=== PATIENT | female | born 1945 | race Caucasian/White ===

== ENCOUNTER 2018-02-01 05:57 | Day surgery (SDC) | payer MEDICARE, OTHER ==
[2018-02-01] MEDS ORDERED: DIPRIVAN 200 MG/20 ML IV ONE (05:58)
[2018-02-01] MEDS ORDERED: Lactated Ringers 1,000 ML IV SCH (06:00)
[2018-02-01 06:25] VITALS: O2SAT 98
--- NOTE | 2018-02-01 08:12 | OP ---
SURGERY DATE/TIME: 02/01/2018 0700 PREOPERATIVE DIAGNOSIS: Change in bowel habits. POSTOPERATIVE DIAGNOSIS: Normal colon. PROCEDURE: Diagnostic colonoscopy. SURGEON: Wilfredo Renner M.D. ANESTHESIA: MAC by Gregg Gonzales CRNA. ESTIMATED BLOOD LOSS: None. SPECIMENS: None. DESCRIPTION OF PROCEDURE: After informed written consent was obtained, the patient was taken to the endoscopy suite. She underwent monitored anesthesia and a digital rectal exam showed normal sphincter tone and no internal lesions. The scope was inserted into the rectum and sequentially the entire colonic mucosa was traversed. The level of cecum was reached and verified with direct visualization of ileocecal valve. Careful mucosal inspection upon withdrawal revealed no gross abnormalities. Prior to withdrawal retroflexion was performed and showed no internal lesions. The scope was removed and the patient was transferred to the recovery room in good condition.
[2018-02-01 09:09] VITALS: BP 120/61; PULSE 69
== END 2018-02-01 08:40 | disposition home or self-care (01) ==
LOC: SDC 05:57
PROVIDERS: ATTEND Family Medicine
DX: R19.4 Change in bowel habit (principal); I10 Essential (primary) hypertension; E03.9 Hypothyroidism, unspecified
CPT/HCPCS: 94250; 99100; J2704

== ENCOUNTER 2018-03-10 09:18 | Emergency (ER) | payer MEDICARE, OTHER ==
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
[2018-03-10 10:34] LABS: BASOPHIL % 0.1 % (0.0-0.4); Basophil (Absolute #) 0.02 (0-0.4); Eosinophil % 0.1 % (0.00-5.0); Eosinophil (Absolute #) 0.01 (0-0.5); Granulocytes % 86.5 % (36.0-66.0); Hemoglobin 13.1 gm/dl (12.0-16.0); Lymphocyte (Absolute #) 1.09 (1.0-4.6); Lymphocytes % 5.7 % (24.0-44.0); Mean Cell Volume 86.7 fl (78-100); Mean Corpuscular Hemoglobin 29.1 pg (26-32); Mean Corpuscular Hgb Concent. 33.6 g/dl (32-36); Mean Platelet Volume 9.1 fl (6-9.5); Monocyte (Absolute #) 1.46 (0.0-1.3); Monocytes % 7.6 % (0.0-12.0); Platelet Count 255 K/mm3 (150-450); Red Cell Distribution Width 14.2 % (11.5-14.0); White Blood Count 19.2 K/mm3 (4.0-10.5)
[2018-03-10 10:52] LABS: Appearance SLIGHTLY CLOUDY (CLEAR); Bacteria MODERATE /HPF (NEGATIVE); Bilirubin NEGATIVE (NEGATIVE); Blood NEGATIVE Ery/ul (0-5); Epithelial Cells RARE /HPF (FEW); Glucose NEGATIVE (NEGATIVE); Ketones NEGATIVE (NEGATIVE); Leukocyte Esterase MODERATE (NEGATIVE); Mucus SLIGHT /HPF (NEGATIVE); Nitrite POSITIVE (NEGATIVE); Protein,Urine Dip NEGATIVE (Negative); RBC 0-2 /HPF (0-2); Specific Gravity 1.017 (1.005-1.025); Urobilinogen NEGATIVE mg/dL (0-1); WBC 51-100 /HPF (0-5)
[2018-03-10 10:53] LABS: ALKALINE PHOSPHATASE 100 U/L (38-126); ANION GAP 10.8 MEQ/L (5-15); BLOOD UREA NITROGEN 27 mg/dL (7-17); CHLORIDE 102 mmol/L (98-107); Calcium 9.7 mg/dL (8.4-10.2); Carbon Dioxide 29 mmol/L (22-30); Creatinine 1 1.34 mg/dL (0.52-1.04); Glucose 135 mg/dL (74-106); NT PRO BNP 621 pg/mL (0-900); Potassium 3.6 mmol/L (3.5-5.1); SGOT/AST 21 U/L (14-36); SGPT/ALT 22 U/L (0-35); SODIUM 138 mmol/L (137-145); Total Protein 6.9 g/dL (6.3-8.2)
[2018-03-10 11:00] LABS: INR 1.12 (0.8-3.0)
[2018-03-10 11:01] LABS: ACETAMINOPHEN < 10 ug/ml (10-30); ETHYL ALCOHOL < 10 mg/dL (0-10); SALICYLATE < 1.0 mg/dL (2-20)
[2018-03-10 11:04] LABS: Amphetamine,Urine NEGATIVE (NEGATIVE); Barbiturate,Urine NEGATIVE (NEGATIVE); Benzodiazepine,Urine NEGATIVE (NEGATIVE); Cocaine,Urine NEGATIVE (NEGATIVE); Methadone,Urine NEGATIVE (NEGATIVE); Opiate,Urine NEGATIVE (NEGATIVE); PCP,Urine NEGATIVE (NEGATIVE); THC,Urine NEGATIVE (NEGATIVE)
--- NOTE | 2018-03-10 11:09 | XRAY ---
Indication: Cough. Disorientation. Comparison: January 07, 2017. PA/lateral chest demonstrates new bibasilar discoid atelectasis/scarring. No focal infiltrate, consolidation, or large effusion. Heart and mediastinal structures within normal limits. Bony thorax intact again with mild degenerative changes, right shoulder arthroplasty, and a right clavicle screw. Also right humeral shaft bone island unchanged since right shoulder exam 06/22/15. Impression: Nonacute chest with chronic features.
--- NOTE | 2018-03-10 11:16 | XRAY ---
Indication: Confusion. Disorientation. Multiple contiguous axial images obtained through the head without contrast. Comparison: January 07, 2017. Images through the base of the brain slightly degraded by motion artifact even with repeat CT. Again no acute intracranial hemorrhage, abnormal extra-axial fluid collection, or mass effect. Fourth ventricle is midline without hydrocephalus. Christensen-white matter differentiation preserved. Bony calvarium intact. Visualized paranasal sinuses and mastoid air cells are clear. Impression: 1. Motion artifact. 2. No gross new or acute intracranial abnormalities. CT DI 70.31
[2018-03-10 11:23] LABS: INFLUENZA A NEGATIVE (NEGATIVE); INFLUENZA B NEGATIVE (NEGATIVE); RESPIRATORY SYNCTIAL VIRUS NEGATIVE (Negative)
[2018-03-10] MEDS ORDERED: Levofloxacin 500MG/100ML D5W 500 MG/100 ML BAG IV ONE (11:54)
[2018-03-10] MEDS: Levofloxacin 500MG/100ML D5W 500 MG/100 ML BAG IV STA (11:55)
[2018-03-10 12:01] VITALS: BP 118/70; PULSE 78; O2SAT 96
== END 2018-03-10 13:02 | disposition home or self-care (01) ==
LOC: ED 09:18
DX: N39.0 Urinary tract infection, site not specified (principal); Z85.3 Personal history of malignant neoplasm of breast; E03.9 Hypothyroidism, unspecified; I10 Essential (primary) hypertension; R41.0 Disorientation, unspecified; M79.10 Myalgia, unspecified site; I25.10 Atherosclerotic heart disease of native coronary artery without angina pectoris; M19.90 Unspecified osteoarthritis, unspecified site; N28.9 Disorder of kidney and ureter, unspecified; F32.9 Major depressive disorder, single episode, unspecified; Z79.899 Other long term (current) drug therapy
CPT/HCPCS: 36000; 36415; 70450; 71046; 80053; 80307; 81001; 83605; 83880; 84484; 85025; 85610; 87040; 87077; 87086; 87186; 87631; 93005; 93041; 96365; 96374; 99284; G0480; G0481; J1956

== ENCOUNTER 2019-10-04 07:16 | Emergency (ER) | payer MEDICARE, OTHER ==
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
[2019-10-04 08:32] VITALS: BP 113/56; PULSE 65
[2019-10-04 08:35] LABS: Appearance CLEAR (CLEAR); Bilirubin NEGATIVE (NEGATIVE); Blood NEGATIVE Ery/ul (0-5); Glucose NEGATIVE (NEGATIVE); Ketones NEGATIVE (NEGATIVE); Leukocyte Esterase NEGATIVE (NEGATIVE); Mucus SLIGHT /HPF (NEGATIVE); Nitrite NEGATIVE (NEGATIVE); Protein,Urine Dip NEGATIVE (Negative); Specific Gravity 1.012 (1.005-1.025); Urobilinogen NEGATIVE mg/dL (0-1)
--- NOTE | 2019-10-04 08:45 | XRAY ---
Indication: Abdomen pressure. Unable to urinate. Multiple contiguous axial images obtained through the abdomen and pelvis without contrast using renal stone protocol. Comparison: None Lung bases demonstrates minimal right posterior medial calcified pleural plaquing and minimal lingula fibrosis/scarring. No infiltrate or effusion. Heart is not enlarged. Small hiatal hernia. Noncontrasted stomach and bowel loops appear nonobstructed. Normal appendix. Minimal sigmoid diverticulosis. No renal calculus or evidence for obstructive uropathy in either system. Right kidney is atrophic. Left mid to lower kidney demonstrates a noncalcified 8.6 cm exophytic cyst. 2.9 cm left ovary cyst. Daily catheter drains the urinary bladder. No free fluid/air. There is a 2.2 cm gallstone. Remaining liver, pancreas, spleen, adrenal glands, kidneys, ureters, bladder, and uterus appear unremarkable for noncontrast exam. Moderate scattered aortoiliac calcifications without AAA. Osseous structures intact with mild/moderate degenerative spondylosis throughout the thoracolumbar spine including 5-6 mm L4 spondylolisthesis. Impression: 1. Negative renal calculus or evidence for obstructive uropathy. 2. Atrophic right kidney, large left renal exophytic cyst, and Daily catheter in situ. 3. Incidental small hiatal hernia, right lung base calcified pleural plaquing, large gallstone, minimal sigmoid diverticulosis, left ovary cyst, multilevel degenerative spondylosis, and grade 1 L4 spondylolisthesis.
[2019-10-04 08:57] VITALS: O2SAT 98
== END 2019-10-04 09:24 | disposition home or self-care (01) ==
LOC: ED 07:16
DX: R33.9 Retention of urine, unspecified (principal); K57.30 Diverticulosis of large intestine without perforation or abscess without bleeding; N28.1 Cyst of kidney, acquired; N83.209 Unspecified ovarian cyst, unspecified side; K80.80 Other cholelithiasis without obstruction; M43.10 Spondylolisthesis, site unspecified; M47.816 Spondylosis without myelopathy or radiculopathy, lumbar region; Z79.899 Other long term (current) drug therapy; I25.10 Atherosclerotic heart disease of native coronary artery without angina pectoris; F32.9 Major depressive disorder, single episode, unspecified; Z85.3 Personal history of malignant neoplasm of breast; N18.3 Chronic kidney disease, stage 3 (moderate)
CPT/HCPCS: 51702; 74176; 81001; 99284

== ENCOUNTER 2020-09-12 13:27 | Emergency (ER) | payer MEDICARE, OTHER ==
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
[2020-09-12 14:19] LABS: Appearance SLIGHTLY CLOUDY (CLEAR); Bilirubin NEGATIVE (NEGATIVE); Blood NEGATIVE Ery/ul (0-5); Epithelial Cells RARE /HPF (FEW); Glucose NEGATIVE (NEGATIVE); Ketones NEGATIVE (NEGATIVE); Leukocyte Esterase TRACE (NEGATIVE); Mucus SLIGHT /HPF (NEGATIVE); Nitrite NEGATIVE (NEGATIVE); Protein,Urine Dip NEGATIVE (Negative); Specific Gravity 1.017 (1.005-1.025); Urobilinogen NEGATIVE mg/dL (0-1); WBC 0-2 /HPF (0-5)
[2020-09-12 14:50] VITALS: BP 132/67; PULSE 55; O2SAT 99
[2020-09-12] MEDS ORDERED: KEFLEX 500 MG PO ONE (14:50)
== END 2020-09-12 15:02 | disposition home or self-care (01) ==
LOC: ED 13:27
DX: R42 Dizziness and giddiness (principal); R41.0 Disorientation, unspecified; N39.0 Urinary tract infection, site not specified; Z79.899 Other long term (current) drug therapy; E03.9 Hypothyroidism, unspecified
CPT/HCPCS: 81001; 99283

== ENCOUNTER 2020-09-13 14:53 | Emergency (ER) | payer MEDICARE, OTHER ==
[2020-09-13 15:47] LABS: Absolute Neutrophil Ct (ANC) 4.12 (1.4-6.9); BASOPHIL % 0.4 % (0.0-0.4); Basophil (Absolute #) 0.03 (0-0.4); Eosinophil % 3.9 % (0.00-5.0); Eosinophil (Absolute #) 0.28 (0-0.5); Lymphocyte (Absolute #) 2.06 (1.0-4.6); Lymphocytes % 28.7 % (24.0-44.0); Mean Cell Volume 87.8 fl (78-100); Mean Corpuscular Hemoglobin 28.6 pg (26-32); Mean Corpuscular Hgb Concent. 32.6 g/dl (32-36); Mean Platelet Volume 9.8 fl (7.5-11.0); Monocyte (Absolute #) 0.69 (0.0-1.3); Monocytes % 9.6 % (0.0-12.0); Neutrophil % 57.4 % (36.0-66.0); Platelet Count 233 K/mm3 (150-450); Red Cell Distribution Width 13.5 % (11.5-14.0); White Blood Count 7.2 K/mm3 (4.0-10.5)
[2020-09-13 15:54] LABS: ALBUMIN 4.2 g/dL (3.5-5.0); ANION GAP 13.7 MEQ/L (5-15); BILIRUBIN,TOTAL 0.3 mg/dL (0.2-1.3); Calcium 9.3 mg/dL (8.4-10.2); Creatinine 1 1.14 mg/dL (0.52-1.04); EST GLOMERULAR FILTRATION RATE 49.5 ML/MIN; Potassium 4.1 mmol/L (3.5-5.1)
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
[2020-09-13 17:01] VITALS: BP 123/70
[2020-09-13 17:05] VITALS: PULSE 64
[2020-09-13 17:09] LABS: Appearance SLIGHTLY CLOUDY (CLEAR); Bilirubin NEGATIVE (NEGATIVE); Blood NEGATIVE Ery/ul (0-5); Glucose NEGATIVE (NEGATIVE); Ketones NEGATIVE (NEGATIVE); Leukocyte Esterase NEGATIVE (NEGATIVE); Mucus SLIGHT /HPF (NEGATIVE); Nitrite NEGATIVE (NEGATIVE); Protein,Urine Dip NEGATIVE (Negative); Specific Gravity 1.014 (1.005-1.025); Urobilinogen NEGATIVE mg/dL (0-1)
[2020-09-13 17:14] LABS: Bacteria NONE SEEN /HPF (NEGATIVE); RBC NONE SEEN /HPF (0-2)
[2020-09-13 17:38] VITALS: O2SAT 98
--- NOTE | 2020-09-13 20:20 | XRAY ---
Indication: Dizziness. Comparison: March 10, 2018. Portable chest clear. Heart and mediastinal structures within normal limits. Bony thorax intact again with mild osteopenia, degenerative changes, right shoulder arthroplasty, right clavicle screw, and benign right humerus sclerotic lesion. Impression: Nonacute chest with chronic features.
--- NOTE | 2020-09-13 20:24 | XRAY ---
Indication: Pain following fall. Comparison: None 2 view right hip demonstrates mild osteopenia, pelvic phleboliths, and pelvic suture material/surgical clips. No other bony, articular, or soft tissue abnormalities.
--- NOTE | 2020-09-13 20:24 | XRAY ---
Indication: Dizziness. Fall. Multiple contiguous axial images obtained through the head without contrast. Comparison: March 10, 2018. There is again age-appropriate global atrophy and calcified right middle cerebral artery. No acute intracranial hemorrhage, abnormal extra-axial fluid collection, or mass effect. Christensen-white matter differentiation preserved. Fourth ventricle is midline without hydrocephalus. Bony calvarium intact. Visualized paranasal sinuses and mastoid air cells are clear. Impression: Again age-appropriate atrophy and calcified right middle cerebral artery. No new or acute intracranial abnormalities. Comment: Preliminary interpretation was made by [facility]. No critical discrepancy.
== END 2020-09-13 17:53 | disposition home or self-care (01) ==
LOC: ED 14:53
DX: R42 Dizziness and giddiness (principal); E79.0 Hyperuricemia without signs of inflammatory arthritis and tophaceous disease; F07.81 Postconcussional syndrome; R51.9 Headache, unspecified; M25.551 Pain in right hip; N18.30 Chronic kidney disease, stage 3 unspecified; E03.9 Hypothyroidism, unspecified; Z79.899 Other long term (current) drug therapy
CPT/HCPCS: 36000; 36415; 70450; 71045; 73502; 80053; 81001; 82150; 83605; 83690; 84484; 84550; 85025; 93005; 99284

== ENCOUNTER 2021-07-16 10:24 | Day surgery (SDC) | payer MEDICARE, OTHER ==
--- NOTE | 2021-07-10 11:54 | HP ---
DATE OF SURGERY: 07/16/2021 HISTORY OF PRESENT ILLNESS: The patient presented with cholelithiasis. She had ultrasound showing gallstones. The patient has complaints of some abdominal pain. The patient desires removal at this time. PAST MEDICAL HISTORY: Hyperlipidemia, hypertension, thyroid, coronary artery disease, chronic kidney disease, arthritis, sleep apnea, possible stroke. PAST SURGICAL HISTORY: Hysterectomy. Bladder tie up. Right shoulder. Left knee. Carpal tunnel both hands. ALLERGIES: STATINS. CEPHALEXIN. OXYBUTYNIN. TAMSULOSIN. MEDICATIONS: Allopurinol, amlodipine, Zetia, isosorbide, liothyronine, metoprolol, Nitro, propranolol, rosuvastatin. FAMILY HISTORY: Cancer, diabetes, heart, stroke. SOCIAL HISTORY: Negative. REVIEW OF SYSTEMS: CONSTITUTIONAL: Denies fever or chills. CHEST: Denies shortness of breath. CVS: Denies chest pain. ABDOMEN: She reports abdominal pain. PHYSICAL EXAMINATION: GENERAL: No acute distress. CHEST: Nonlabored. No shortness of breath. CVS: Regular rate and rhythm. ABDOMEN: Soft. IMPRESSION: Symptomatic cholelithiasis. PLAN: Laparoscopic cholecystectomy with Dr. Niall Montgomery. As dictated by Kimberly John NP.
[~2021-07-16 10:24] MED LIST: Lactated Ringers 1,000 ML IV ONE; Sensorcaine 0.25% 10 ML ONE
[2021-07-16] MEDS ORDERED: DIPRIVAN 200 MG/20 ML IV ONE (10:25)
[2021-07-16] MEDS ORDERED: Lactated Ringers 1,000 ML IV ONE ×2 (10:48→14:42)
[2021-07-16] MEDS ORDERED: Reglan 10 MG/2 ML IV ONE (11:24)
[2021-07-16] MEDS ORDERED: Pepcid 20 MG VIAL IV ONE (11:24)
[2021-07-16] MEDS ORDERED: Lactated Ringers 1,000 ML IV SCH (11:30)
[2021-07-16] MEDS ORDERED: Levofloxacin 500MG/100ML D5W 500 MG/100 ML BAG IV ONE (11:33)
[2021-07-16] MEDS ORDERED: CLINDAMYCIN-D5W 900 MG/50 ML*** 900 MG/50 ML BAG IV SCH (12:00)
[2021-07-16] MEDS ORDERED: Zemuron 100 MG/10 ML ONE (12:21)
[2021-07-16] MEDS ORDERED: Versed 2 MG/2 ML Injection ONE (12:21)
[2021-07-16] MEDS ORDERED: SUBLIMAZE 100 MCG/2 ML ONE ×3 (12:21→14:29)
[2021-07-16] MEDS ORDERED: BRIDION 200MG/2ML IV ONE (13:51)
[2021-07-16] MEDS ORDERED: Zofran 4 MG/2 ML VIAL ONE ×2 (13:52→14:43)
[2021-07-16] MEDS ORDERED: MORPHINE SULFATE 10 MG/ML ONE (14:42)
[2021-07-16] MEDS ORDERED: NORCO 5/325 MG PO PRN (16:01)
[2021-07-16 17:02] VITALS: BP 166/93; PULSE 70; O2SAT 95
--- NOTE | 2021-07-17 13:15 | OP ---
SURGERY DATE: 07/16/2021 SURGERY TIME: 130 PREOPERATIVE DIAGNOSIS: 1. SYMPTOMATIC CHOLELITHIASIS. POSTOPERATIVE DIAGNOSIS: 1. SYMPTOMATIC CHOLELITHIASIS. PROCEDURE: 1. Laparoscopic cholecystectomy. SURGEON: Niall Montgomery M.D. ANESTHESIA: General endotracheal tube. COMPLICATIONS: None. CONDITION: Stable. INDICATION: Patient with upper abdominal pain. US positive. Seen and examined. Procedure discussed. Wished to proceed. OPERATIVE PROCEDURE: Taken to surgery. General anesthetic. Routine prep and drape. Veress needle inserted. Opened to a pressure of 1. Insufflated to a pressure of 14. Four 5's were used. Good visualization. Cystic duct defined. Cystic artery defined. Both structures triply Ligaclipped and transected. Clips totally cross wall approximated. Gallbladder rolled out of gallbladder fossa. Gallbladder delivered through the epigastric port. Hole closure device was used here. The field was dry. CO2 exsufflated. Skin closed with 4-0 Vicryl and Steri-strips. Patient tolerated the procedure satisfactory.
== END 2021-07-16 16:45 | disposition home or self-care (01) ==
LOC: SDC 10:24
PROVIDERS: ATTEND Surgery
DX: K80.20 Calculus of gallbladder without cholecystitis without obstruction (principal)
CPT/HCPCS: 99100; J1956; J2250; J2270; J2405; J2704; J3010; A9270-GY

== ENCOUNTER 2022-06-04 20:57 | Emergency (ER) | payer MEDICARE, OTHER ==
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
[2022-06-04] MEDS ORDERED: Sodium Chloride 0.9% 1000 ML 1,000 ML IV STA (21:27)
[2022-06-04] MEDS ORDERED: Sodium Chloride 0.9% 1000 ML 1,000 ML ONE (21:32)
[2022-06-04 21:46] LABS: Absolute Neutrophil Ct (ANC) 5.53 x10^3/uL (1.4-6.9); BASOPHIL % 0.6 % (0.0-0.4); Basophil (Absolute #) 0.05 x10^3/uL (0-0.4); Eosinophil % 1.7 % (0.00-5.0); Eosinophil (Absolute #) 0.14 x10^3/uL (0-0.5); Hematocrit 39.1 % (35-47); Hemoglobin 12.6 g/dL (12.0-16.0); IMMATURE GRAN # 0.03 x10^3u/L (0.00-0.03); IMMATURE GRAN % 0.4 % (0.00-0.4); Mean Cell Volume 90.1 fL (78-100); Mean Corpuscular Hgb Concent. 32.2 g/dL (32-36); Mean Platelet Volume 9.8 fL (7.5-11.0); Monocyte (Absolute #) 0.51 x10^3/uL (0.0-1.3); Neutrophil % 65.3 % (36.0-66.0); Platelet Count 326 x10^3/uL (150-450); Red Blood Count 4.34 x10^6/uL (4.1-5.4); Red Cell Distribution Width 13.2 % (11.5-14.0); White Blood Count 8.5 x10^3/uL (4.0-10.5)
[2022-06-04 21:56] LABS: Appearance Clear (Clear); Bacteria None Seen /HPF (None Seen); Bilirubin Negative (Negative); Blood Negative (Negative); Epithelial Cells None Seen /HPF (None Seen); Glucose, Urine Negative (Negative); Hyaline Casts NONE SEEN /LPF (0-2); Ketones Negative (Negative); Leukocyte Esterase Negative (Negative); Nitrite Negative (Negative); Ph 5.5 (4.6-8.0); Protein,Urine Dip Negative (Negative); RBC 0-2 /HPF (0-5); Specific Gravity 1.015 (1.005-1.030); Urobilinogen 0.2 mg/dL (0.2); WBC 0-2 /HPF (0-5)
[2022-06-04 21:59] LABS: ADD URINE CULTURE? NO (NO)
[2022-06-04 22:03] LABS: ALBUMIN 4.3 g/dL (3.5-5.0); BILIRUBIN,TOTAL 0.5 mg/dL (0.2-1.3); Calcium 9.7 mg/dL (8.4-10.2); Creatinine 1 1.23 mg/dL (0.52-1.04); EST GLOMERULAR FILTRATION RATE 45.1 ML/MIN; Potassium 3.9 mmol/L (3.5-5.1); Total Protein 7.1 g/dL (6.3-8.2)
--- NOTE | 2022-06-04 22:11 | XRAY ---
Indication: Confusion 3 weeks. Multiple contiguous axial images obtained through the head without contrast. Comparison: September 13, 2020 Again age-appropriate global atrophy and calcified right middle cerebral artery. No acute intracranial hemorrhage, abnormal extra-axial fluid collection, or mass effect. Fourth ventricle is midline without hydrocephalus. Christensen-white matter differentiation preserved. Bony calvarium intact. Visualized paranasal sinuses and mastoid air cells are clear. Impression: Again atrophy and calcified right middle cerebral artery. No new or acute intracranial abnormalities.
[2022-06-04 22:21] VITALS: O2SAT 98
[2022-06-04 22:44] LABS: INFLUENZA A NEGATIVE (NEGATIVE); INFLUENZA B NEGATIVE (NEGATIVE); RESPIRATORY SYNCTIAL VIRUS NEGATIVE (NEGATIVE); SARS-CoV-2 Xpert Express NEGATIVE (NEGATIVE)
[2022-06-04 23:08] VITALS: BP 144/61; PULSE 80
== END 2022-06-04 23:12 | disposition home or self-care (01) ==
LOC: ED 20:57
DX: F45.9 Somatoform disorder, unspecified (principal); R53.1 Weakness; R41.0 Disorientation, unspecified; I10 Essential (primary) hypertension; Z79.899 Other long term (current) drug therapy; Z20.828 Contact with and (suspected) exposure to other viral communicable diseases
CPT/HCPCS: 0241U; 36000; 36415; 70450; 80053; 81001; 84436; 84443; 84484; 85025; 86308; 93005; 99284

== ENCOUNTER 2023-05-29 16:57 | Observation (INO) | payer MEDICARE, OTHER ==
--- NOTE | 2023-05-29 18:54 | ERPHSYRPT ---
<GILJAIRO KIM - Last Filed: 05/29/23 21:18> - History of Present Illness Source: patient Exam Limitations: no limitations Patient Subjective Stated Complaint: C/O Fatigue and "losing time" Triage Nursing Assessment: Patient ambulated back to ER without difficulties. She is alert and oriented; talkative. SRIVASTAVA WNL. No SOB. No cough. Skin tone is normal. Hx Tetanus, Diphtheria Vaccination/Date Given: Yes Hx Influenza Vaccination/Date Given: Yes Hx Pneumococcal Vaccination/Date Given: Yes Immunizations Up to Date: Yes <SONY CAMEJO - Last Filed: 06/02/23 23:16> - History of Present Illness Time Seen by Provider: 05/29/23 17:00 Physician History: 78-year-old female with history of hypertension, hyperlipidemia presented in the ER with complains of intermittent confusion episodes for the last 2 weeks. Patient reports she is forgetting common things like getting on highway and sometimes also having hard time word forming. Also reports having issues with balance lately. Reports having similar symptoms in the past after she had a concussion but improved with Aricept. Denies any fall or trauma. No fever or chills reported. Denies any chest pain palpitations or shortness of breath. Denies any focal numbness tingling or weakness. Reports feeling fatigued and worn out all the time. (SONY CAMEJO) Allergies/Adverse Reactions: Cpjofxn-YRR-KoM Reductase Inhibitor [Grgbrmb-Ijr-Oba Reductase Inhibitor] Allergy (Intermediate, Verified 05/29/23 18:07) hip and leg pain "couldn't move or do anything" cephalexin Adverse Reaction (Mild, Verified 05/29/23 18:07) Nausea oxybutynin Adverse Reaction (Mild, Verified 05/29/23 18:07) urinary retention tamsulosin Adverse Reaction (Mild, Verified 05/29/23 18:07) urinary retention Home Medications: Aspirin 81 mg PO DAILY 09/20/17 [History] Multivitamin W-Minerals/Lutein [Centrum Silver Tablet] 1 each PO DAILY 09/20/17 [History] Amlodipine Besylate 5 mg PO DAILY 10/04/19 [History] Ezetimibe 10 mg PO HS 10/04/19 [History] Isosorbide Mononitrate 30 mg [Imdur 30 MG] 30 mg PO DAILY 10/04/19 [History] Rosuvastatin Calcium 20 mg PO HS 10/04/19 [History] Nitroglycerin 0.4 mg Tablet [Nitrostat 0.4 MG Tablet] 0.4 mg SL UD 06/11/20 [History] Acetaminophen 500 mg [Tylenol Extra Strength 500 mg] 500 mg PO DAILY PRN PRN 07/14/21 [History] Allopurinol 100 mg [Zyloprim 100 mg] 100 mg PO BID 07/14/21 [History] Docusate Sodium [Stool Softener] 100 mg PO HS 07/14/21 [History] Cranberry Fruit Extract/Vit C [Azo Cranberry Softgel] 2 each PO DAILY 05/30/23 [History] Donepezil HCl 10 mg PO DAILY 05/30/23 [History] Gluc/Chnd/Om3/Dha/Epa/Fish/Str [Glucosamine-Chondr Plus Sftgel] 2 each PO DAILY 05/30/23 [History] Liothyronine Sodium 2 tab PO DAILY 05/30/23 [History] Mv-Min/FA/Vit K/Lutein/Zeaxant [Preservision Areds 2 Plus Mv] 1 each PO BID 05/30/23 [History] Travel Risk - International Travel Have you traveled outside of the country in past 3 weeks: No - Emerging Infectious Disease Are you exhibiting symptoms associated with any current EIDs: No <SONY CAMEJO - Last Filed: 06/02/23 23:16> - Review of Systems Constitutional: Fatigue Eyes: No Symptoms Ears, Nose, & Throat: No Symptoms Respiratory: No Symptoms Cardiac: No Symptoms Abdominal/Gastrointestinal: No Symptoms Genitourinary Symptoms: No Symptoms Musculoskeletal: Arthralgias Skin: No Symptoms Neurological: Gait Changes Endocrine: No Symptoms Hematologic/Lymphatic: No Symptoms Immunological/Allergic: No Symptoms <SONY CAMEJO - Last Filed: 06/02/23 23:16> - Past Medical History Pertinent Past Medical History: Yes Neurological History: Stroke ENT History: Cataracts Cardiac History: Coronary Artery Disease, High Cholesterol, Hypertension Respiratory History: Sleep Apnea Endocrine Medical History: Hypothyroidism, Other Musculoskeletal History: Degenerative Disk Disease, Osteoarthritis GI Medical History: No Pertinent History History: Renal Disease, Other Psycho-Social History: Depression Female Reproductive Disorders: Breast Cancer Other Medical History: STAGE 3 CKD, CPAP FOR SLEEP APNEA, RIGHT TKR - Past Surgical History Past Surgical History: Yes Neuro Surgical History: No Pertinent History Cardiac: No Pertinent History Respiratory: No Pertinent History Gastrointestinal: No Pertinent History Genitourinary: No Pertinent History Musculoskeletal: Orthopedic Surgery Female Surgical History: Hysterectomy, Other Other Surgical History: cataract x2, right shoulder replacement and left index finger arthritis fusion. left steriotactic breast bx, carpal tunnel reyes , bladder tie up right knee replacement - Social History Smoking Status: Never smoker How long have you smoked: 2 Exposure to second hand smoke: No Drug Use: none Patient Lives Alone: Yes <SONY CAMEJO - Last Filed: 06/02/23 23:16> - Physical Exam General Appearance: no apparent distress, alert Eye Exam: PERRL/EOMI Ears, Nose, Throat Exam: normal ENT inspection Neck Exam: normal inspection, non-tender, supple, full range of motion Respiratory Exam: normal breath sounds, lungs clear Cardiovascular Exam: regular rate/rhythm, normal heart sounds Gastrointestinal/Abdomen Exam: soft, normal bowel sounds, No tenderness Back Exam: normal inspection, normal range of motion Extremity Exam: normal inspection, normal range of motion Neurologic Exam: alert, oriented x 3, cooperative, 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, nml cerebellar function, nml station & gait, sensation nml, No normal mood/affect, No motor deficits Skin Exam: normal color SpO2 Interpretation: normal SpO2: 99 O2 Delivery: Room Air <SONY CAMEJO - Last Filed: 06/02/23 23:16> - Nursing Vital Signs Nursing Vital Signs: Initial Vital Signs Temperature 97.4 F 05/29/23 17:56 Pulse Rate 63 05/29/23 17:56 Respiratory Rate 14 05/29/23 17:56 Blood Pressure 129/77 05/29/23 17:56 O2 Sat by Pulse Oximetry 99 05/29/23 17:56 Pain Scale Pain Intensity 0 Ordered Tests: Medication Summary Discontinued Medications Generic Name Dose Route Start Last Admin Trade Name Freq PRN Reason Stop Dose Admin Acetaminophen 325 mg 05/29/23 23:18 Acetaminophen 325 Mg Tablet PO 06/28/23 23:17 Q4H PRN PRN PAIN, FEVER, HEADACHE Acetaminophen 500 mg 05/30/23 08:14 Acetaminophen 500 Mg Tablet PO 06/29/23 08:13 DAILY PRN PRN PAIN Allopurinol 100 mg 05/30/23 10:00 05/30/23 11:37 Allopurinol 100 Mg Tablet PO 06/29/23 09:59 100 mg DAILY REKHA Administration Amlodipine Besylate 5 mg 05/30/23 10:00 05/30/23 11:37 Amlodipine Besylate 5 Mg Tablet PO 06/29/23 09:59 5 mg QAM REKHA Administration Aspirin 81 mg 05/30/23 10:00 05/30/23 11:37 Aspirin 81 Mg Tablet.Ec PO 06/29/23 09:59 81 mg DAILY REKHA Administration Docusate Sodium 100 mg 05/30/23 22:00 Docusate Sodium 100 Mg Capsule PO 06/29/23 21:59 HS [facility] Donepezil HCl 10 mg 05/30/23 10:00 05/30/23 11:37 Donepezil Hcl 10 Mg Tablet PO 06/29/23 09:59 10 mg DAILY REKHA Administration Ezetimibe 10 mg 05/30/23 22:00 Ezetimibe 10 Mg Tab PO 06/29/23 21:59 HS [facility] Enoxaparin Sodium 40 mg 05/30/23 10:00 05/30/23 11:37 Enoxaparin Sodium 40 Mg/0.4 Ml Syringe SQ 06/29/23 09:59 40 mg DAILY REKHA Administration Ceftriaxone Sodium 1 gm in 100 mls @ 200 mls/hr 05/29/23 20:00 05/29/23 20:11 Rocephin 1 Gm / 100 Ml Nacl IV 05/29/23 20:29 200 ml/hr STAT ONE 200 mls/hr Administration Ceftriaxone Sodium Confirm 05/29/23 20:05 Rocephin 1 Gm / 100 Ml Nacl Administered 05/29/23 20:06 Dose 1 gm in 100 mls @ ud IV .STK-MED ONE Sodium Chloride 1,000 mls @ 50 mls/hr 05/29/23 23:30 05/30/23 00:57 Sodium Chloride 0.9% 1000 Ml IV 06/28/23 23:29 50 mls/hr .Q20H REKHA Administration Ceftriaxone Sodium 1 gm in 100 mls @ 200 mls/hr 05/29/23 23:30 05/30/23 01:35 Rocephin 1 Gm / 100 Ml Nacl IV 06/28/23 23:29 Not Given Q24H REKHA Ceftriaxone Sodium 1 gm in 100 mls @ 200 mls/hr 05/30/23 22:00 Rocephin 1 Gm / 100 Ml Nacl IV 06/28/23 23:29 QPM REKHA Ceftriaxone Sodium Confirm 05/30/23 01:29 Rocephin 1 Gm / 100 Ml Nacl Administered 05/30/23 01:30 Dose 1 gm in 100 mls @ ud IV .STK-MED ONE Isosorbide Mononitrate 30 mg 05/30/23 10:00 05/30/23 10:57 Isosorbide Mononitrate 30 Mg Tab PO 06/29/23 09:59 Not Given DAILY REKHA Metoprolol Tartrate 25 mg 05/30/23 10:00 05/30/23 11:22 Metoprolol Tartrate 25 Mg Tab PO 06/29/23 09:59 Not Given BID REKHA Miscellaneous Information 1 each 05/30/23 09:00 Medication Intervention 1 Each Each 06/29/23 08:59 .RN TO CHECK REKHA Miscellaneous Information 1 each 05/30/23 11:45 Medication Intervention 1 Each Each MC 06/29/23 11:44 .RN TO CHECK REKHA Multivitamins Therapeutic 1 tab 05/30/23 10:00 05/30/23 11:37 Multivitamins,Therapeutic 1 Tab Tab PO 06/29/23 09:59 1 tab DAILY REKHA Administration Multivitamins/Minerals 1 tab 05/30/23 10:00 05/30/23 10:57 Beta-Carotene(A) W-C And E/Min 1 Tab Tablet PO 06/29/23 09:59 Not Given BID REKHA Simvastatin 40 mg 05/30/23 22:00 Simvastatin 20 Mg Tablet PO 06/29/23 21:59 HS [facility] Lab/Rad Data: Laboratory Result Diagrams 05/29/23 19:04 05/29/23 19:04 Laboratory Results 05/29/23 05/29/23 05/29/23 Range/Units 19:25 19:25 19:04 WBC (4.0-10.5) x10^3/uL RBC (4.1-5.4) x10^6/uL Hgb (12.0-16.0) g/dL Hct (35-47) % MCV (78-100) fL MCH (26-32) pg MCHC (32-36) g/dL RDW (11.5-14.0) % Plt Count (150-450) x10^3/uL MPV (7.5-11.0) fL Gran % (36.0-66.0) % Immature Gran % (Auto) (0.00-0.4) % Nucleat RBC Rel Count (0.00-0.1) % Eos # (Auto) (0-0.5) x10^3/uL Immature Gran # (Auto) (0.00-0.03) x10^3u/L Absolute Lymphs (auto) (1.0-4.6) x10^3/uL Absolute Monos (auto) (0.0-1.3) x10^3/uL Absolute Nucleated RBC (0.00-0.01) x10^3u/L Lymphocytes % (24.0-44.0) % Monocytes % (0.0-12.0) % Eosinophils % (0.00-5.0) % Basophils % (0.0-0.4) % Absolute Granulocytes (1.4-6.9) x10^3/uL Basophils # (0-0.4) x10^3/uL Sodium (135-145) mmol/L Potassium (3.5-5.1) mmol/L Chloride (98-107) mmol/L Carbon Dioxide (22-30) mmol/L Anion Gap (5-15) MEQ/L BUN (7-17) mg/dL Creatinine (0.52-1.04) mg/dL Estimated GFR ML/MIN Glucose (74-106) mg/dL Lactic Acid (0.4-2.0) Calcium (8.4-10.2) mg/dL Total Bilirubin (0.2-1.3) mg/dL AST (14-36) U/L ALT (0-35) U/L Alkaline Phosphatase (38-126) U/L Troponin I < 0.012 (0.000-0.034) ng/mL Serum Total Protein (6.3-8.2) g/dL Albumin (3.5-5.0) g/dL Urine Color Yellow (Yellow) Urine Appearance Clear (Clear) Urine pH 5.5 (4.6-8.0) Ur Specific [place] <=1.005 (1.005-1.030) Urine Protein Negative (Negative) Urine Glucose (UA) Negative (Negative) mg/dL Urine Ketones Negative (Negative) Urine Blood Negative (Negative) Urine Nitrite Positive A (Negative) Urine Bilirubin Negative (Negative) Urine Urobilinogen 0.2 (0.2) mg/dL Ur Leukocyte Esterase Small A (Negative) U Hyaline Cast (Auto) NONE SEEN (0-2) /LPF Urine Microscopic RBC 0-2 (0-5) /HPF Urine Microscopic WBC 11-20 A (0-5) /HPF Ur Epithelial Cells Rare (None Seen) /HPF Urine Bacteria Many A (None Seen) /HPF Urine Culture Reflexed YES (NO) Ur Random Creatinine 50.1 MG/DL Urine Sodium 23 L (30-90) mmol/L 05/29/23 05/29/23 05/29/23 Range/Units 19:04 19:04 18:45 WBC 6.6 (4.0-10.5) x10^3/uL RBC 4.17 (4.1-5.4) x10^6/uL Hgb 12.0 (12.0-16.0) g/dL Hct 38.2 (35-47) % MCV 91.6 (78-100) fL MCH 28.8 (26-32) pg MCHC 31.4 L (32-36) g/dL RDW 13.2 (11.5-14.0) % Plt Count 234 (150-450) x10^3/uL MPV 9.8 (7.5-11.0) fL Gran % 63.7 (36.0-66.0) % Immature Gran % (Auto) 0.2 (0.00-0.4) % Nucleat RBC Rel Count 0.0 (0.00-0.1) % Eos # (Auto) 0.08 (0-0.5) x10^3/uL Immature Gran # (Auto) 0.01 (0.00-0.03) x10^3u/L Absolute Lymphs (auto) 1.78 (1.0-4.6) x10^3/uL Absolute Monos (auto) 0.48 (0.0-1.3) x10^3/uL Absolute Nucleated RBC 0.00 (0.00-0.01) x10^3u/L Lymphocytes % 27.1 (24.0-44.0) % Monocytes % 7.3 (0.0-12.0) % Eosinophils % 1.2 (0.00-5.0) % Basophils % 0.5 (0.0-0.4) % Absolute Granulocytes 4.19 (1.4-6.9) x10^3/uL Basophils # 0.03 (0-0.4) x10^3/uL Sodium 139 (135-145) mmol/L Potassium 4.8 (3.5-5.1) mmol/L Chloride 106 (98-107) mmol/L Carbon Dioxide 24 (22-30) mmol/L Anion Gap 13.5 (5-15) MEQ/L BUN 23 H (7-17) mg/dL Creatinine 1.20 H (0.52-1.04) mg/dL Estimated GFR 46.6 ML/MIN Glucose 92 (74-106) mg/dL Lactic Acid 1.1 (0.4-2.0) Calcium 9.7 (8.4-10.2) mg/dL Total Bilirubin 0.30 (0.2-1.3) mg/dL AST 38 H (14-36) U/L ALT 38 H (0-35) U/L Alkaline Phosphatase 116 (38-126) U/L Troponin I (0.000-0.034) ng/mL Serum Total Protein 6.8 (6.3-8.2) g/dL Albumin 3.8 (3.5-5.0) g/dL Urine Color (Yellow) Urine Appearance (Clear) Urine pH (4.6-8.0) Ur Specific [place] (1.005-1.030) Urine Protein (Negative) Urine Glucose (UA) (Negative) mg/dL Urine Ketones (Negative) Urine Blood (Negative) Urine Nitrite (Negative) Urine Bilirubin (Negative) Urine Urobilinogen (0.2) mg/dL Ur Leukocyte Esterase (Negative) U Hyaline Cast (Auto) (0-2) /LPF Urine Microscopic RBC (0-5) /HPF Urine Microscopic WBC (0-5) /HPF Ur Epithelial Cells (None Seen) /HPF Urine Bacteria (None Seen) /HPF Urine Culture Reflexed (NO) Ur Random Creatinine MG/DL Urine Sodium (30-90) mmol/L - Progress Progress: improved Counseled pt/family regarding: lab results, diagnosis, need for follow-up, rad results <JAIRO CORDERO - Last Filed: 05/29/23 21:18> - Progress Progress Note: 05/29/23 21:18 I took over care for this pt from Dr Camejo at 1900 I discussed admission for obs w/ Dr Neumann who is willing to accept (JAIRO CORDERO) Medical Desision Making - Discussion of managment Care discussed with:: hospitalist Reviewed:: Need for additional workup Agreed on:: place in obs Will see patient: in hospital - Diagnostic Testing Diagnostic test were ordered, analyzed, and reviewed by me: Yes Radiological Interpretation: Reviewed by me, Teleradiologist Report - Risk of complications The pt has a high risk of morbidity or mortality based on: Decision regarding hospitilization or escalation of hosp level of care <JAIRO CORDERO - Last Filed: 05/29/23 21:18> - Departure Departure Disposition: Observation Critical Care Time: No <JAIRO CORDERO - Last Filed: 05/29/23 21:18> <SONY CAMEJO - Last Filed: 06/02/23 23:16> - Departure Clinical Impression: Confusion UTI (urinary tract infection) Qualifiers: Urinary tract infection type: acute cystitis Hematuria presence: without hematuria Qualified Code(s): N30.00 - Acute cystitis without hematuria Condition: Stable
[2023-05-29 19:07] LABS: Absolute Neutrophil Ct (ANC) 4.19 x10^3/uL (1.4-6.9); BASOPHIL % 0.5 % (0.0-0.4); Basophil (Absolute #) 0.03 x10^3/uL (0-0.4); Eosinophil % 1.2 % (0.00-5.0); Eosinophil (Absolute #) 0.08 x10^3/uL (0-0.5); Hematocrit 38.2 % (35-47); IMMATURE GRAN # 0.01 x10^3u/L (0.00-0.03); IMMATURE GRAN % 0.2 % (0.00-0.4); Lymphocyte (Absolute #) 1.78 x10^3/uL (1.0-4.6); Lymphocytes % 27.1 % (24.0-44.0); Mean Cell Volume 91.6 fL (78-100); Mean Corpuscular Hemoglobin 28.8 pg (26-32); Mean Corpuscular Hgb Concent. 31.4 g/dL (32-36); Mean Platelet Volume 9.8 fL (7.5-11.0); Monocyte (Absolute #) 0.48 x10^3/uL (0.0-1.3); Monocytes % 7.3 % (0.0-12.0); Neutrophil % 63.7 % (36.0-66.0); Platelet Count 234 x10^3/uL (150-450); Red Blood Count 4.17 x10^6/uL (4.1-5.4); Red Cell Distribution Width 13.2 % (11.5-14.0); White Blood Count 6.6 x10^3/uL (4.0-10.5)
[2023-05-29 19:18] LABS: ALBUMIN 3.8 g/dL (3.5-5.0); ANION GAP 13.5 MEQ/L (5-15); BILIRUBIN,TOTAL 0.3 mg/dL (0.2-1.3); Calcium 9.7 mg/dL (8.4-10.2); Creatinine 1 1.2 mg/dL (0.52-1.04); EST GLOMERULAR FILTRATION RATE 46.6 ML/MIN; Potassium 4.8 mmol/L (3.5-5.1); Total Protein 6.8 g/dL (6.3-8.2)
[2023-05-29 19:35] LABS: Appearance Clear (Clear); Bacteria Many /HPF (None Seen); Bilirubin Negative (Negative); Blood Negative (Negative); Epithelial Cells Rare /HPF (None Seen); Glucose, Urine Negative (Negative); Hyaline Casts NONE SEEN /LPF (0-2); Ketones Negative (Negative); Leukocyte Esterase Small (Negative); Nitrite Positive (Negative); Ph 5.5 (4.6-8.0); Protein,Urine Dip Negative (Negative); RBC 0-2 /HPF (0-5); Specific Gravity <=1.005 (1.005-1.030); Urobilinogen 0.2 mg/dL (0.2)
[2023-05-29 19:37] LABS: ADD URINE CULTURE? YES (NO)
--- NOTE | 2023-05-29 19:47 | XRAY ---
CLINICAL HISTORY: confusion TECHNIQUE: An axial CT scan of the brain was performed from the skull base to the high parietal region. One of the following dose reduction techniques was utilized for this exam: Automated exposure control, adjustment of the mA and/or kV according to patient size, and use of iterative reconstruction. CTDI: 53.92, DLP: 1016.25. COMPARISON: None. FINDINGS: The visualized brain parenchyma shows a normal appearance. No focal parenchymal abnormalities are demonstrated. Christensen-white matter differentiation is maintained. No midline shifts or deformity. No intracerebral or extra axial hematoma. Normal size and configuration of the cerebral ventricles. The right middle cerebral artery decreased in caliber and calcified, suggestive of chronic changes. Correlate with the previous study and consider completing with CT angiography if necessary to evaluate patency. The atherosclerotic calcific disease is seen in the left vertebral and bilateral internal carotid arteries. Normal CT appearance of the posterior fossa structures namely the cerebellar hemispheres, brainstem, and cerebellar peduncles. The IACs are unremarkable. The cerebello-pontine angles are clear. The osseous structures in the skull base are unremarkable. No definite calvarium fractures. Scanned paranasal sinuses are clear. IMPRESSION: 1. Right middle cerebral artery decreased in caliber and calcified, suggestive of chronic changes. Correlate with the previous study and consider completing with CT angiography if necessary to evaluate patency. 2. 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 (05/29/2023 19:44:27 EDT)
[2023-05-29] MEDS ORDERED: ROCEPHIN 1 GM / 100 ML NaCl 0 GM/0 ML IVPB IV ONE (20:05)
[2023-05-29] MEDS: ROCEPHIN 1 GM / 100 ML NaCl 1 GM/100 ML IVPB IV ONE (20:11)
[2023-05-29] MEDS ORDERED: TYLENOL 325 MG PO PRN (23:18)
--- NOTE | 2023-05-29 23:42 | PCM.HP ---
History of Present Illness - Chief Complaint Chief Complaint: confusion Date: 05/29/23 History of Present Illness: Ms. DANIELS is a 78 year old female with a past medical history significant for hypertension, hyperlipidemia and CKD stage IIIa who presents to the hospital with increasing episodes of confusion, imbalance while walking and difficulty finding words when she speaks that has been going on since she had a concussion a few years ago. She was sent to a neuropsychologist who thought she had dementia but then passed a series of tests which showed only mild cognitive decline, so she was started on Aricept, which improved her symptoms. They have gotten worse though she does not note any focal deficits or slurred speech. No fever or chills. No chest pain or shortness of breath. - Review of Systems Constitutional: No Fever, No Chills Eyes: No Vision Changes Ears, Nose, & Throat: No Nose Discharge Respiratory: No Cough, No Orthopnea, No Short Of Breath Cardiac: No Chest Pain, No Edema, No Palpitations Abdominal/Gastrointestinal: No Abdominal Pain, No Nausea, No Vomiting, No Diarrhea Genitourinary Symptoms: No Dysuria, No Frequency, No Hematuria Musculoskeletal: Arthralgias Skin: No Cellulitis Neurological: No Dizziness, No Focal Weakness, No Gait Changes, No Tremors Psychological: No Suicidal Ideations Endocrine: No Polyuria, No Polydipsia, No Hair Changes Medications & Allergies Home Medications: Home Medication List Propranolol HCl 10 mg [Inderal 10 MG] 1 tab PO DAILY PRN 01/07/17 [History Confirmed 07/01/22] Aspirin 81 mg PO DAILY 09/20/17 [History Confirmed 07/01/22] Multivitamin W-Minerals/Lutein [Centrum Silver Tablet] 1 each PO DAILY 09/20/17 [History Confirmed 07/01/22] Amlodipine Besylate 5 mg PO DAILY 10/04/19 [History Confirmed 07/01/22] Ezetimibe 10 mg PO HS 10/04/19 [History Confirmed 07/01/22] Isosorbide Mononitrate 30 mg [Imdur 30 MG] 30 mg PO DAILY 10/04/19 [History Confirmed 07/01/22] Metoprolol Tartrate 25 mg [Lopressor 25MG Tab] 25 mg PO BID 10/04/19 [History Confirmed 07/01/22] Rosuvastatin Calcium 20 mg PO DAILY 10/04/19 [History Confirmed 07/01/22] Nitroglycerin 0.4 mg Tablet [Nitrostat 0.4 MG Tablet] 0.4 mg SL UD 06/11/20 [History Confirmed 07/01/22] Liothyronine Sodium 10 mcg PO DAILY 06/12/20 [History Confirmed 07/01/22] Acetaminophen 500 mg [Tylenol Extra Strength 500 mg] 500 mg PO DAILY PRN PRN 07/14/21 [History Confirmed 07/01/22] Allopurinol 100 mg [Zyloprim 100 mg] 100 mg PO DAILY 07/14/21 [History Confirmed 07/01/22] Docusate Sodium [Stool Softener] 100 mg PO DAILY PRN 07/14/21 [History Confirmed 07/01/22] Topiramate 25 mg [Topamax 25 MG] 50 mg PO HS 07/01/22 [History Confirmed 07/01/22] Allergies/Adverse Reactions: Allergies Allergy/AdvReac Type Severity Reaction Status Date / Time Ehywzda-YRC-LyT Reductase Allergy Intermediate hip and Verified 05/29/23 18:07 Inhibitor leg pain [Issnzix-Lis-Xfw Reductase Inhibitor] cephalexin AdvReac Mild Nausea Verified 05/29/23 18:07 oxybutynin AdvReac Mild Verified 05/29/23 18:07 tamsulosin AdvReac Mild Verified 05/29/23 18:07 - Past Medical History Past Medical History: Yes Neurological History: Stroke ENT History: Cataracts Cardiac History: Coronary Artery Disease, High Cholesterol, Hypertension Respiratory History: Sleep Apnea Endocrine Medical History: Hypothyroidism, Other Musculoskelatal History: Degenerative Disk Disease, Osteoarthritis GI Medical History: No Pertinent History History: Renal Disease, Other Pyscho-Social History: Depression Reproductive Disorders: Breast Cancer Comment: STAGE 3 CKD, CPAP FOR SLEEP APNEA, RIGHT TKR - Past Surgical History Past Surgical History: Yes Neuro Surgical History: No Pertinent History Cardiac History: No Pertinent History Respiratory Surgery: No Pertinent History GI Surgical History: No Pertinent History Genitourinary Surgical Hx: No Pertinent History Musculskeletal Surgical Hx: Orthopedic Surgery Female Surgical History: Hysterectomy, Other Other Surgical History: cataract x2, right shoulder replacement and left index finger arthritis fusion. left steriotactic breast bx, carpal tunnel reyes , bladder tie up right knee replacement - Social History Smoking Status: Former smoker How long have you smoked: 2 Exposure to second hand smoke: No Alcohol: None Drug Use: none - Social Determinants of Health Will the patient participate in the screening: Yes Do you worry about a steady place to live?: No Do you have any problems with any of the following?: No known problems In the past 12 months,have you had to go without utilities?: No Have you or anyone in your house had to go without enough: No Transportation Issues: No Has anyone in your support network made you feel unsafe?: No Does the patient want assistance with any of the above?: No - Physical Exam Vital Signs: Vital Signs - 24 hr Temp Pulse Resp BP BP Pulse Ox 05/29/23 22:46 97.2 F 58 L 18 136/76 98 05/29/23 22:01 68 18 134/60 98 05/29/23 21:30 62 18 141/65 99 05/29/23 21:11 63 11 L 140/70 99 05/29/23 21:10 66 15 98 05/29/23 21:00 67 15 99 05/29/23 20:40 81 20 98 05/29/23 20:00 81 18 126/75 95 05/29/23 19:40 65 13 130/70 98 05/29/23 18:54 99 05/29/23 18:31 55 L 25 H 132/60 05/29/23 18:00 60 18 146/77 05/29/23 17:56 97.4 F 63 14 129/77 99 General Appearance: no apparent distress Neurologic Exam: alert, oriented x 3 Ears, Nose, Throat Exam: dry mucous membranes Neck Exam: supple Respiratory Exam: No respiratory distress Cardiovascular Exam: regular rate/rhythm Gastrointestinal/Abdomen Exam: soft Extremity Exam: No pedal edema, No swelling Skin Exam: normal color, No rash Results - Labs Lab/Micro Results: Lab Results-Last 24 Hours 05/29/23 05/29/23 05/29/23 Range/Units 18:45 19:04 19:04 WBC 6.6 (4.0-10.5) x10^3/uL RBC 4.17 (4.1-5.4) x10^6/uL Hgb 12.0 (12.0-16.0) g/dL Hct 38.2 (35-47) % MCV 91.6 (78-100) fL MCH 28.8 (26-32) pg MCHC 31.4 L (32-36) g/dL RDW 13.2 (11.5-14.0) % Plt Count 234 (150-450) x10^3/uL MPV 9.8 (7.5-11.0) fL Gran % 63.7 (36.0-66.0) % Immature Gran % (Auto) 0.2 (0.00-0.4) % Nucleat RBC Rel Count 0.0 (0.00-0.1) % Eos # (Auto) 0.08 (0-0.5) x10^3/uL Immature Gran # (Auto) 0.01 (0.00-0.03) x10^3u/L Absolute Lymphs (auto) 1.78 (1.0-4.6) x10^3/uL Absolute Monos (auto) 0.48 (0.0-1.3) x10^3/uL Absolute Nucleated RBC 0.00 (0.00-0.01) x10^3u/L Lymphocytes % 27.1 (24.0-44.0) % Monocytes % 7.3 (0.0-12.0) % Eosinophils % 1.2 (0.00-5.0) % Basophils % 0.5 (0.0-0.4) % Absolute Granulocytes 4.19 (1.4-6.9) x10^3/uL Basophils # 0.03 (0-0.4) x10^3/uL Sodium 139 (135-145) mmol/L Potassium 4.8 (3.5-5.1) mmol/L Chloride 106 (98-107) mmol/L Carbon Dioxide 24 (22-30) mmol/L Anion Gap 13.5 (5-15) MEQ/L BUN 23 H (7-17) mg/dL Creatinine 1.20 H (0.52-1.04) mg/dL Estimated GFR 46.6 ML/MIN Glucose 92 (74-106) mg/dL Lactic Acid 1.1 (0.4-2.0) Calcium 9.7 (8.4-10.2) mg/dL Total Bilirubin 0.30 (0.2-1.3) mg/dL AST 38 H (14-36) U/L ALT 38 H (0-35) U/L Alkaline Phosphatase 116 (38-126) U/L Troponin I (0.000-0.034) ng/mL Serum Total Protein 6.8 (6.3-8.2) g/dL Albumin 3.8 (3.5-5.0) g/dL Urine Color (Yellow) Urine Appearance (Clear) Urine pH (4.6-8.0) Ur Specific [place] (1.005-1.030) Urine Protein (Negative) Urine Glucose (UA) (Negative) mg/dL Urine Ketones (Negative) Urine Blood (Negative) Urine Nitrite (Negative) Urine Bilirubin (Negative) Urine Urobilinogen (0.2) mg/dL Ur Leukocyte Esterase (Negative) U Hyaline Cast (Auto) (0-2) /LPF Urine Microscopic RBC (0-5) /HPF Urine Microscopic WBC (0-5) /HPF Ur Epithelial Cells (None Seen) /HPF Urine Bacteria (None Seen) /HPF Urine Culture Reflexed (NO) 05/29/23 05/29/23 Range/Units 19:04 19:25 WBC (4.0-10.5) x10^3/uL RBC (4.1-5.4) x10^6/uL Hgb (12.0-16.0) g/dL Hct (35-47) % MCV (78-100) fL MCH (26-32) pg MCHC (32-36) g/dL RDW (11.5-14.0) % Plt Count (150-450) x10^3/uL MPV (7.5-11.0) fL Gran % (36.0-66.0) % Immature Gran % (Auto) (0.00-0.4) % Nucleat RBC Rel Count (0.00-0.1) % Eos # (Auto) (0-0.5) x10^3/uL Immature Gran # (Auto) (0.00-0.03) x10^3u/L Absolute Lymphs (auto) (1.0-4.6) x10^3/uL Absolute Monos (auto) (0.0-1.3) x10^3/uL Absolute Nucleated RBC (0.00-0.01) x10^3u/L Lymphocytes % (24.0-44.0) % Monocytes % (0.0-12.0) % Eosinophils % (0.00-5.0) % Basophils % (0.0-0.4) % Absolute Granulocytes (1.4-6.9) x10^3/uL Basophils # (0-0.4) x10^3/uL Sodium (135-145) mmol/L Potassium (3.5-5.1) mmol/L Chloride (98-107) mmol/L Carbon Dioxide (22-30) mmol/L Anion Gap (5-15) MEQ/L BUN (7-17) mg/dL Creatinine (0.52-1.04) mg/dL Estimated GFR ML/MIN Glucose (74-106) mg/dL Lactic Acid (0.4-2.0) Calcium (8.4-10.2) mg/dL Total Bilirubin (0.2-1.3) mg/dL AST (14-36) U/L ALT (0-35) U/L Alkaline Phosphatase (38-126) U/L Troponin I < 0.012 (0.000-0.034) ng/mL Serum Total Protein (6.3-8.2) g/dL Albumin (3.5-5.0) g/dL Urine Color Yellow (Yellow) Urine Appearance Clear (Clear) Urine pH 5.5 (4.6-8.0) Ur Specific [place] <=1.005 (1.005-1.030) Urine Protein Negative (Negative) Urine Glucose (UA) Negative (Negative) mg/dL Urine Ketones Negative (Negative) Urine Blood Negative (Negative) Urine Nitrite Positive A (Negative) Urine Bilirubin Negative (Negative) Urine Urobilinogen 0.2 (0.2) mg/dL Ur Leukocyte Esterase Small A (Negative) U Hyaline Cast (Auto) NONE SEEN (0-2) /LPF Urine Microscopic RBC 0-2 (0-5) /HPF Urine Microscopic WBC 11-20 A (0-5) /HPF Ur Epithelial Cells Rare (None Seen) /HPF Urine Bacteria Many A (None Seen) /HPF Urine Culture Reflexed YES (NO) - Radiology Impressions Radiology Exams & Impressions: Radiology Procedures Category Date Time Status HEAD WITHOUT CONTRAST [CT] Stat Exams 05/29/23 18:35 Completed Assessment/Plan (1) Confusion Current Visit: Yes Status: Acute Assessment & Plan: Etiology unclear but at risk for CVA 1. Admit to hospital for observation 2. ASA 3. Will obtain MRI brain 4. Neuro checks Code(s): R41.0 - DISORIENTATION, UNSPECIFIED (2) Chronic kidney disease, stage 3a Current Visit: Yes Status: Acute Assessment & Plan: Creatinine appears at baseline at 1.2 with GFR 47 mL/min 1. Gentle IVFs 2. Encourage PO intake 3. Follow I/Os 4. Watch electrolytes, creatinine closely Code(s): N18.31 - CHRONIC KIDNEY DISEASE, STAGE 3A (3) Hypertensive chronic kidney disease with stage 1 through stage 4 chronic kidney disease, or unspecified chronic kidney disease Current Visit: Yes Status: Acute Assessment & Plan: Blood pressure under reasonable control 1. Continue bp meds 2. Low Na diet 3. Monitor blood pressure readings Code(s): I12.9 - HYPERTENSIVE CHRONIC KIDNEY DISEASE W STG 1-4/UNSP CHR KDNY (4) UTI (urinary tract infection) Current Visit: Yes Status: Acute Qualifiers: Urinary tract infection type: acute cystitis Hematuria presence: without hematuria Qualified Code(s): N30.00 - Acute cystitis without hematuria Assessment & Plan: Appears to have UTI with nitrites/leukocytes 1. Empiric Rocephin 2. Check urine cultures 3. IVFs Code(s): N39.0 - URINARY TRACT INFECTION, SITE NOT SPECIFIED Telemedicine Encounter - Telemedicine Encounter Telemedicine Encounter: The entirety of this encounter was performed via Telemedicine"
[2023-05-30] MEDS: Sodium Chloride 0.9% 1000 ML 1,000 ML IV SCH (00:57)
[2023-05-30] MEDS ORDERED: ROCEPHIN 1 GM / 100 ML NaCl 1 GM/100 ML IVPB IV ONE (01:29)
[2023-05-30] MEDS: ROCEPHIN 1 GM / 100 ML NaCl 1 GM/100 ML IVPB IV SCH (01:35)
[2023-05-30 05:38] LABS: ANION GAP 15.9 MEQ/L (5-15); BILIRUBIN,TOTAL 0.2 mg/dL (0.2-1.3); Calcium 9.7 mg/dL (8.4-10.2); Creatinine 1 1.09 mg/dL (0.52-1.04); EST GLOMERULAR FILTRATION RATE 52.3 ML/MIN; Potassium 4.7 mmol/L (3.5-5.1); Total Protein 7.3 g/dL (6.3-8.2)
[2023-05-30] MEDS ORDERED: TYLENOL EXTRA STRENGTH 500 MG PO PRN (08:14)
[2023-05-30 08:18] LABS: Hematocrit 40.3 % (35-47); Hemoglobin 12.9 g/dL (12.0-16.0); Mean Cell Volume 90.6 fL (78-100); Mean Platelet Volume 10.6 fL (7.5-11.0); Platelet Count 250 x10^3/uL (150-450); Red Blood Count 4.45 x10^6/uL (4.1-5.4); Red Cell Distribution Width 13.2 % (11.5-14.0); White Blood Count 6.6 x10^3/uL (4.0-10.5)
[2023-05-30] MEDS ORDERED: MEDICATION INTERVENTION MC SCH ×2 (09:00→11:45)
[2023-05-30] MEDS ORDERED: FISH PO SCH (10:00)
[2023-05-30] MEDS ORDERED: [UNRECOGNIZED DRUG - OTHER] PO SCH (10:00)
[2023-05-30] MEDS ORDERED: EPA PO SCH (10:00)
[2023-05-30] MEDS ORDERED: GLUC PO SCH (10:00)
[2023-05-30] MEDS ORDERED: DHA PO SCH (10:00)
[2023-05-30] MEDS ORDERED: NON-FORMULARY ITEM (Aspirin [Aspirin] 81 MG Tablet) PO SCH (10:00)
[2023-05-30] MEDS: Imdur 30 MG PO SCH (10:57)
[2023-05-30] MEDS: Ocuvite Tablet PO SCH (10:57)
[2023-05-30] MEDS: Lopressor 25MG Tab PO SCH (11:22)
[2023-05-30 11:29] VITALS: BP 121/60; PULSE 94; RESP 18; TEMP 97.3; O2SAT 99
[2023-05-30] MEDS: ZYLOPRIM 100 MG PO SCH (11:37)
[2023-05-30] MEDS: NORVASC 5 MG PO SCH (11:37)
[2023-05-30] MEDS: Aricept 10 MG PO SCH (11:37)
[2023-05-30] MEDS: ENOXAPARIN SODIUM SQ SCH (11:37)
[2023-05-30] MEDS: THERAGRAN MULTIVITAMIN PO SCH (11:37)
[2023-05-30] MEDS: ECOTRIN 81 MG PO SCH (11:37)
--- NOTE | 2023-05-30 12:17 | XRAY ---
Indication: Confusion. Two-dimensional sonogram and color Doppler imaging carotid arteries of the neck performed. Comparison: February 17, 2017 Examination right carotid circulation again demonstrates tortuous proximal common carotid artery. Continued widely patent common carotid, carotid, internal carotid, and external carotid arteries. PSV CCA is 88 cm/s. PSV ICA is 105 cm/s. ICA/CCA ratio is 1.2. Normal antegrade vertebral artery flow. Examination left carotid circulation also demonstrates mild tortuous common carotid artery. Widely patent common carotid, carotid bulb, internal carotid, and external carotid arteries. PSV CCA is 97 cm/s. PSV ICA is 85 cm/s. ICA/CCA ratio is 0.9. Normal antegrade vertebral artery flow. Impression: Continued widely patent carotid arteries of the neck bilaterally. Velocity measurements and ratios again negative for hemodynamically significant flow-limiting stenosis.
--- NOTE | 2023-05-30 13:43 | PCM.DS ---
Discharge Summary Date of Admission: 05/29/23 22:36 Date of Discharge: 05/30/23 Admitting Physician: MARIE SOFIA MD Primary Care Provider: SOTERO EPSTEIN DO Allergies Allergies Yncpdzc-LCX-XtK Reductase Inhibitor [Iaibqpj-Usg-Vbf Reductase Inhibitor] Allergy (Intermediate, Verified 05/29/23 18:07) hip and leg pain "couldn't move or do anything" cephalexin Adverse Reaction (Mild, Verified 05/29/23 18:07) Nausea oxybutynin Adverse Reaction (Mild, Verified 05/29/23 18:07) urinary retention tamsulosin Adverse Reaction (Mild, Verified 05/29/23 18:07) urinary retention Hospital Summary - Hospital Course Hospital Course: Ms. DANIELS is a 78 year old female with a past medical history significant for hypertension, hyperlipidemia and CKD stage IIIa who presents to the hospital with increasing episodes of confusion, imbalance while walking and difficulty finding words when she speaks that has been going on since she had a concussion a few years ago. She was sent to a neuropsychologist who thought she had dementia but then passed a series of tests which showed only mild cognitive decline, so she was started on Aricept, which improved her symptoms. They have gotten worse though she does not note any focal deficits or slurred speech. She does have a UTI and started on antibiotics. Labs also show Acute on chronic renal disease. CT brain negative. MRI of brain negative for acute concern. She is insistent she needs to d/c today. She reports she has a urologist, SYED Ba. She last saw her 2 weeks ago as she has repeat UTI's. She was referred to GI as her explosive bowels appear to be causing her UTI's she reports. UC is pending and can follow OP. She is not confused today and appears to be doing much better. She denies CP, SOB, abd. pain, N/V/D. She was found to be taking her home meds this morning out of her purse. Nurse discussed with pt safety concerns. This provider alerted BILL Higginbotham assistance director of unit of this as well. Pt refused to allow staff to remove meds from room. Anahy explained we are not allowed to take pt meds if pt does not allow from room. Discussed safety concerns with all involved. - Vitals & Intake/Output Vital Signs: Vital Signs Temperature 97.3 F 05/30/23 11:29 Pulse Rate 94 H 05/30/23 11:29 Respiratory Rate 18 05/30/23 11:29 Blood Pressure 121/60 05/30/23 11:29 O2 Sat by Pulse Oximetry 99 05/30/23 11:29 Intake & Output: Intake & Output 05/28/23 05/29/23 05/30/23 05/31/23 11:59 11:59 11:59 11:59 Intake Total 982 450 Balance 982 450 Weight 69.1 kg - Lab Result Diagrams: 05/30/23 04:50 05/30/23 04:50 Lab Results-Last 24 Hrs: Lab Results-Last 24 Hours 05/29/23 05/29/23 05/29/23 Range/Units 18:45 19:04 19:04 WBC 6.6 (4.0-10.5) x10^3/uL RBC 4.17 (4.1-5.4) x10^6/uL Hgb 12.0 (12.0-16.0) g/dL Hct 38.2 (35-47) % MCV 91.6 (78-100) fL MCH 28.8 (26-32) pg MCHC 31.4 L (32-36) g/dL RDW 13.2 (11.5-14.0) % Plt Count 234 (150-450) x10^3/uL MPV 9.8 (7.5-11.0) fL Gran % 63.7 (36.0-66.0) % Immature Gran % (Auto) 0.2 (0.00-0.4) % Nucleat RBC Rel Count 0.0 (0.00-0.1) % Eos # (Auto) 0.08 (0-0.5) x10^3/uL Immature Gran # (Auto) 0.01 (0.00-0.03) x10^3u/L Absolute Lymphs (auto) 1.78 (1.0-4.6) x10^3/uL Absolute Monos (auto) 0.48 (0.0-1.3) x10^3/uL Absolute Nucleated RBC 0.00 (0.00-0.01) x10^3u/L Lymphocytes % 27.1 (24.0-44.0) % Monocytes % 7.3 (0.0-12.0) % Eosinophils % 1.2 (0.00-5.0) % Basophils % 0.5 (0.0-0.4) % Absolute Granulocytes 4.19 (1.4-6.9) x10^3/uL Basophils # 0.03 (0-0.4) x10^3/uL Sodium 139 (135-145) mmol/L Potassium 4.8 (3.5-5.1) mmol/L Chloride 106 (98-107) mmol/L Carbon Dioxide 24 (22-30) mmol/L Anion Gap 13.5 (5-15) MEQ/L BUN 23 H (7-17) mg/dL Creatinine 1.20 H (0.52-1.04) mg/dL Estimated GFR 46.6 ML/MIN Glucose 92 (74-106) mg/dL Lactic Acid 1.1 (0.4-2.0) Calcium 9.7 (8.4-10.2) mg/dL Total Bilirubin 0.30 (0.2-1.3) mg/dL AST 38 H (14-36) U/L ALT 38 H (0-35) U/L Alkaline Phosphatase 116 (38-126) U/L Troponin I (0.000-0.034) ng/mL Serum Total Protein 6.8 (6.3-8.2) g/dL Albumin 3.8 (3.5-5.0) g/dL Urine Color (Yellow) Urine Appearance (Clear) Urine pH (4.6-8.0) Ur Specific [place] (1.005-1.030) Urine Protein (Negative) Urine Glucose (UA) (Negative) mg/dL Urine Ketones (Negative) Urine Blood (Negative) Urine Nitrite (Negative) Urine Bilirubin (Negative) Urine Urobilinogen (0.2) mg/dL Ur Leukocyte Esterase (Negative) U Hyaline Cast (Auto) (0-2) /LPF Urine Microscopic RBC (0-5) /HPF Urine Microscopic WBC (0-5) /HPF Ur Epithelial Cells (None Seen) /HPF Urine Bacteria (None Seen) /HPF Urine Culture Reflexed (NO) 05/29/23 05/29/23 05/29/23 Range/Units 19:04 19:25 23:15 WBC (4.0-10.5) x10^3/uL RBC (4.1-5.4) x10^6/uL Hgb (12.0-16.0) g/dL Hct (35-47) % MCV (78-100) fL MCH (26-32) pg MCHC (32-36) g/dL RDW (11.5-14.0) % Plt Count (150-450) x10^3/uL MPV (7.5-11.0) fL Gran % (36.0-66.0) % Immature Gran % (Auto) (0.00-0.4) % Nucleat RBC Rel Count (0.00-0.1) % Eos # (Auto) (0-0.5) x10^3/uL Immature Gran # (Auto) (0.00-0.03) x10^3u/L Absolute Lymphs (auto) (1.0-4.6) x10^3/uL Absolute Monos (auto) (0.0-1.3) x10^3/uL Absolute Nucleated RBC (0.00-0.01) x10^3u/L Lymphocytes % (24.0-44.0) % Monocytes % (0.0-12.0) % Eosinophils % (0.00-5.0) % Basophils % (0.0-0.4) % Absolute Granulocytes (1.4-6.9) x10^3/uL Basophils # (0-0.4) x10^3/uL Sodium (135-145) mmol/L Potassium (3.5-5.1) mmol/L Chloride (98-107) mmol/L Carbon Dioxide (22-30) mmol/L Anion Gap (5-15) MEQ/L BUN (7-17) mg/dL Creatinine (0.52-1.04) mg/dL Estimated GFR ML/MIN Glucose (74-106) mg/dL Lactic Acid (0.4-2.0) Calcium (8.4-10.2) mg/dL Total Bilirubin (0.2-1.3) mg/dL AST (14-36) U/L ALT (0-35) U/L Alkaline Phosphatase (38-126) U/L Troponin I < 0.012 < 0.012 (0.000-0.034) ng/mL Serum Total Protein (6.3-8.2) g/dL Albumin (3.5-5.0) g/dL Urine Color Yellow (Yellow) Urine Appearance Clear (Clear) Urine pH 5.5 (4.6-8.0) Ur Specific [place] <=1.005 (1.005-1.030) Urine Protein Negative (Negative) Urine Glucose (UA) Negative (Negative) mg/dL Urine Ketones Negative (Negative) Urine Blood Negative (Negative) Urine Nitrite Positive A (Negative) Urine Bilirubin Negative (Negative) Urine Urobilinogen 0.2 (0.2) mg/dL Ur Leukocyte Esterase Small A (Negative) U Hyaline Cast (Auto) NONE SEEN (0-2) /LPF Urine Microscopic RBC 0-2 (0-5) /HPF Urine Microscopic WBC 11-20 A (0-5) /HPF Ur Epithelial Cells Rare (None Seen) /HPF Urine Bacteria Many A (None Seen) /HPF Urine Culture Reflexed YES (NO) 05/30/23 05/30/23 05/30/23 Range/Units 04:50 04:50 04:50 WBC 6.6 (4.0-10.5) x10^3/uL RBC 4.45 (4.1-5.4) x10^6/uL Hgb 12.9 (12.0-16.0) g/dL Hct 40.3 (35-47) % MCV 90.6 (78-100) fL MCH 29.0 (26-32) pg MCHC 32.0 (32-36) g/dL RDW 13.2 (11.5-14.0) % Plt Count 250 (150-450) x10^3/uL MPV 10.6 (7.5-11.0) fL Gran % (36.0-66.0) % Immature Gran % (Auto) (0.00-0.4) % Nucleat RBC Rel Count (0.00-0.1) % Eos # (Auto) (0-0.5) x10^3/uL Immature Gran # (Auto) (0.00-0.03) x10^3u/L Absolute Lymphs (auto) (1.0-4.6) x10^3/uL Absolute Monos (auto) (0.0-1.3) x10^3/uL Absolute Nucleated RBC (0.00-0.01) x10^3u/L Lymphocytes % (24.0-44.0) % Monocytes % (0.0-12.0) % Eosinophils % (0.00-5.0) % Basophils % (0.0-0.4) % Absolute Granulocytes (1.4-6.9) x10^3/uL Basophils # (0-0.4) x10^3/uL Sodium 142 (135-145) mmol/L Potassium 4.7 (3.5-5.1) mmol/L Chloride 108 H (98-107) mmol/L Carbon Dioxide 22 (22-30) mmol/L Anion Gap 15.9 H (5-15) MEQ/L BUN 22 H (7-17) mg/dL Creatinine 1.09 H (0.52-1.04) mg/dL Estimated GFR 52.3 ML/MIN Glucose 85 (74-106) mg/dL Lactic Acid (0.4-2.0) Calcium 9.7 (8.4-10.2) mg/dL Total Bilirubin 0.20 (0.2-1.3) mg/dL AST 41 H (14-36) U/L ALT 42 H (0-35) U/L Alkaline Phosphatase 117 (38-126) U/L Troponin I < 0.012 (0.000-0.034) ng/mL Serum Total Protein 7.3 (6.3-8.2) g/dL Albumin 4.0 (3.5-5.0) g/dL Urine Color (Yellow) Urine Appearance (Clear) Urine pH (4.6-8.0) Ur Specific [place] (1.005-1.030) Urine Protein (Negative) Urine Glucose (UA) (Negative) mg/dL Urine Ketones (Negative) Urine Blood (Negative) Urine Nitrite (Negative) Urine Bilirubin (Negative) Urine Urobilinogen (0.2) mg/dL Ur Leukocyte Esterase (Negative) U Hyaline Cast (Auto) (0-2) /LPF Urine Microscopic RBC (0-5) /HPF Urine Microscopic WBC (0-5) /HPF Ur Epithelial Cells (None Seen) /HPF Urine Bacteria (None Seen) /HPF Urine Culture Reflexed (NO) - Radiology Exams Ordered Rad Exams-Entire Visit: Radiology Procedures Category Date Time Status CAROTID BILATERAL [US] Routine Exams 05/30/23 08:13 Completed HEAD WITHOUT CONTRAST [CT] Stat Exams 05/29/23 18:35 Completed MRI BRAIN W & W/O CONTRAST [MRI] Routine Exams 05/30/23 08:00 Ordered - Procedures and Test Procedures and Tests throughout Hospitalization: Therapy Orders & Screens 05/29/23 23:18 PT Eval & Treat ( Order) ONCE Reason for Eval:: imbalance Diagnosis: confusion OT Eval and Treat (MD Order) ONCE Comment: Physician Instructions: Reason For Exam: Diagnosis: confusion Discharge Exam General Appearance: no apparent distress, alert Neurologic Exam: alert, oriented x 3, cooperative, normal mood/affect, nml cerebellar function, sensation nml, No motor deficits Eye Exam: PERRL, EOMI, eyes nml inspection Ears, Nose, Throat Exam: normal ENT inspection, pharynx normal, moist mucous membranes Neck Exam: normal inspection, non-tender, supple, full range of motion Respiratory Exam: normal breath sounds, lungs clear, No respiratory distress Cardiovascular Exam: regular rate/rhythm, normal heart sounds Gastrointestinal/Abdomen Exam: soft, No tenderness, No mass Pelvic Exam: deferred Rectal Exam: deferred Back Exam: normal inspection, normal range of motion, No CVA tenderness, No vertebral tenderness Extremity Exam: normal inspection, normal range of motion Skin Exam: normal color, warm, dry Final Diagnosis/Problem List - Final Discharge Diagnosis/Problem (1) UTI (urinary tract infection) Current Visit: Yes Status: Acute Assessment & Plan: - pt reports chronic UTI's and follows SYED Ba- urology - ceftriaxone - IVF Code(s): N39.0 - URINARY TRACT INFECTION, SITE NOT SPECIFIED (2) Acute kidney injury superimposed on chronic kidney disease Current Visit: Yes Status: Acute Assessment & Plan: - Creat 1.09 - near baseline after reviewing old records - Follows nephrology Op Code(s): N17.9 - ACUTE KIDNEY FAILURE, UNSPECIFIED; N18.9 - CHRONIC KIDNEY DISEASE, UNSPECIFIED (3) Confusion Current Visit: Yes Status: Acute Assessment & Plan: - resolved - 2:2 UTI - Carotid duplex 05/29 Impression: Continued widely patent carotid arteries of the neck bilaterally. Velocity measurements and ratios again negative for hemodynamically significant flow-limiting stenosis - CT brain: 05/28 IMPRESSION: 1. Right middle cerebral artery decreased in caliber and calcified, suggestive of chronic changes. Correlate with the previous study and consider completing with CT angiography if necessary to evaluate patency. 2. Atherosclerotic calcific disease in the left vertebral and bilateral internal carotid arteries - MRI reviewed and negative for acute concern Code(s): R41.0 - DISORIENTATION, UNSPECIFIED - Discharge Discharge Date: 05/30/23 Disposition: Home, Self-Care Condition: Stable Prescriptions: New Cefuroxime Axetil 500 mg [Ceftin 500 mg] 500 mg PO BID 5 Days #10 tablet Continue Multivitamin W-Minerals/Lutein [Centrum Silver Tablet] 1 each PO DAILY Aspirin 81 mg PO DAILY Rosuvastatin Calcium 20 mg PO HS Amlodipine Besylate 5 mg PO DAILY Isosorbide Mononitrate 30 mg [Imdur 30 MG] 30 mg PO DAILY Ezetimibe 10 mg PO HS Nitroglycerin 0.4 mg Tablet [Nitrostat 0.4 MG Tablet] 0.4 mg SL UD Acetaminophen 500 mg [Tylenol Extra Strength 500 mg] 500 mg PO DAILY PRN PRN PRN Reason: Pain Allopurinol 100 mg [Zyloprim 100 mg] 100 mg PO BID Docusate Sodium [Stool Softener] 100 mg PO HS Donepezil HCl 10 mg PO DAILY Cranberry Fruit Extract/Vit C [Azo Cranberry Softgel] 2 each PO DAILY Mv-Min/FA/Vit K/Lutein/Zeaxant [Preservision Areds 2 Plus Mv] 1 each PO BID Gluc/Chnd/Om3/Dha/Epa/Fish/Str [Glucosamine-Chondr Plus Sftgel] 2 each PO DAILY Liothyronine Sodium 2 tab PO DAILY Follow up with: SOTERO EPSTEIN DO [Primary Care Provider] -
--- NOTE | 2023-05-30 15:05 | XRAY ---
Indication: Confusion. Difficulty with speech. Negative CT head and negative carotid ultrasound. Sagittal, coronal, and axial MRI brain performed using pre and post T1, T2, FLAIR, diffusion, and ADC sequences. 10 cc Dotarem contrast used. Comparison: July 01, 2022 Again age-appropriate global atrophy, mild periventricular degenerative micro-ischemia bilaterally, and subcentimeter focus remote infarct right mid aparicio radiata. No acute intracranial hemorrhage, abnormal extra-axial fluid collection, or mass effect. Diffusion images negative for restricted signal. Following gadolinium, no abnormal enhancing intra or extra-axial mass. Fourth ventricle is midline without hydrocephalus. 7/8 cranial nerve complex bilaterally symmetric. Normal flow-void signal within the major intracerebral circulation. Normal appearing craniocervical junction and sella turcica. Paranasal sinuses are clear. Impression: 1. Again chronic findings including atrophy, degenerative micro-ischemia, and subcentimeter remote infarct right aparicio radiata. 2. Continued negative for acute intracranial abnormalities or evidence for evolving large vessel territorial stroke. 3. Negative contrast exam.
[2023-05-30] MEDS ORDERED: ROCEPHIN 1 GM / 100 ML NaCl 1 GM/100 ML IVPB IV SCH (22:00)
[2023-05-30] MEDS ORDERED: ZOCOR 20MG PO SCH (22:00)
[2023-05-30] MEDS ORDERED: NON-FORMULARY ITEM (Rosuvastatin Calcium [Rosuvastatin Calcium] 20 MG Tablet) PO SCH (22:00)
[2023-05-30] MEDS ORDERED: Zetia 10 MG PO SCH (22:00)
[2023-05-30] MEDS ORDERED: Docusate Sodium 100 MG PO SCH (22:00)
[2023-05-31] MEDS ORDERED: NON-FORMULARY ITEM (Liothyronine Sodium [Liothyronine Sodium] 5 MCG Tablet) PO SCH (10:00)
[2023-06-01 16:47] LABS: CREATININE,URINE RANDOM 50.1 MG/DL
== END 2023-05-30 16:12 | disposition home or self-care (01) ==
LOC: ED 16:57 → MED SURG 22:36
PROVIDERS: ADMIT Internal Medicine Nephrology; ATTEND Internal Medicine Nephrology
DX: N39.0 Urinary tract infection, site not specified (principal); N17.9 Acute kidney failure, unspecified; I12.9 Hypertensive chronic kidney disease with stage 1 through stage 4 chronic kidney disease, or unspecified chronic kidney disease; N18.30 Chronic kidney disease, stage 3 unspecified; R26.89 Other abnormalities of gait and mobility; R41.0 Disorientation, unspecified; E78.5 Hyperlipidemia, unspecified; I25.10 Atherosclerotic heart disease of native coronary artery without angina pectoris; Z79.899 Other long term (current) drug therapy; Z20.828 Contact with and (suspected) exposure to other viral communicable diseases; Z85.3 Personal history of malignant neoplasm of breast
CPT/HCPCS: 36000; 36415; 70450; 70553; 80053; 81001; 82570; 83605; 84300; 84484; 85025; 85027; 87077; 87086; 87186; 93268; 93880; 96365; 99284; J0696; J1650; Q3014; A9270-GY; G0378

== ENCOUNTER 2023-12-08 10:21 | Emergency (ER) | payer MEDICARE, OTHER ==
[2023-12-08 11:01] VITALS: TEMP 97.4
--- NOTE | 2023-12-08 11:13 | ERPHSYRPT ---
- History of Present Illness Time Seen by Provider: 12/08/23 10:45 Source: patient, old records Exam Limitations: no limitations Patient Subjective Stated Complaint: Patient c/o being "off balance" but denies dizziness or changes in vision. Patient rambling about intermittent "episodes" since she received a concussion 7 years ago. Friend at bedside reports patient came to visit her this am and was confused and convinced her to come to the ER. Patient gave ER nurse 2 different timelines to when symptoms occurred for this "episode" and then gave ER MD a totally different timeline than the first 2 timelines given to ER nurse. Triage Nursing Assessment: Patient ambulated back to ER. Patient is anxious and speaking rapidly, rambling. Hard to keep patient focused and on task to complete assessment. No SOB. Skin tone normal. CAROLA MARTINEZ. Physician History: This is a 78-year-old white female patient of Dr. Epstein who arrives by private vehicle escorted by a friend. Patient states that she has confusion, is periodically off balance and periodically has vision changes. Patient has had several of these types of episodes as she calls them after she had a concussion 7 years ago. Patient is not on any new medications. Patient states she always has a degree of visual changes that are brief as well as balance problems. They come and go fairly quickly and this "episode" started last evening with the visual changes and balance changes. However she feels a bit confused and that started this morning approximately 2 to 3 hours prior to arrival. Patient arrives to the emergency department neurologically intact. She now recalls that she had an episode in May 2023 with similar complaints and she was found to have a urinary tract infection. Patient denies head injury. Patient denies chest pain. Patient denies shortness of breath. She has no abdominal pain. Patient has a history of hyperlipidemia, hypothyroidism, hypertension and gout. Patient is no longer taking Aricept per her neurologist. Her neurologist told her that she does not have Alzheimer's dementia. This was as recent as November 13, 2023. Timing/Duration: yesterday Severity: mild Character of Deficits: none Deficits: no difficulties Baseline/Normal Cognition: alert oriented x 3 Current Cognition: alert oriented x 3 Baseline Gait: walks w/o assistance Associated Symptoms: confusion, vision changes, other (Balance issues) Allergies/Adverse Reactions: Ocuxzbf-VHU-VzA Reductase Inhibitor [Ucbzabd-Yur-Qfg Reductase Inhibitor] Allergy (Intermediate, Verified 12/08/23 10:47) hip and leg pain "couldn't move or do anything" cephalexin Adverse Reaction (Mild, Verified 12/08/23 10:47) Nausea oxybutynin Adverse Reaction (Mild, Verified 12/08/23 10:47) urinary retention tamsulosin Adverse Reaction (Mild, Verified 12/08/23 10:47) urinary retention Home Medications: Aspirin 81 mg PO DAILY 09/20/17 [History] Multivitamin W-Minerals/Lutein [Centrum Silver Tablet] 1 each PO DAILY 09/20/17 [History] Amlodipine Besylate 5 mg PO DAILY 10/04/19 [History] Ezetimibe 10 mg PO HS 10/04/19 [History] Isosorbide Mononitrate 30 mg [Imdur 30 MG] 30 mg PO DAILY 10/04/19 [History] Rosuvastatin Calcium 20 mg PO HS 10/04/19 [History] Nitroglycerin 0.4 mg Tablet [Nitrostat 0.4 MG Tablet] 0.4 mg SL UD 06/11/20 [History] Acetaminophen 500 mg [Tylenol Extra Strength 500 mg] 500 mg PO DAILY PRN PRN 07/14/21 [History] Allopurinol 100 mg [Zyloprim 100 mg] 100 mg PO BID 07/14/21 [History] Docusate Sodium [Stool Softener] 100 mg PO HS 07/14/21 [History] Cranberry Fruit Extract/Vit C [Azo Cranberry Softgel] 2 each PO DAILY 05/30/23 [History] Donepezil HCl 10 mg PO DAILY 05/30/23 [History] Gluc/Chnd/Om3/Dha/Epa/Fish/Str [Glucosamine-Chondr Plus Sftgel] 2 each PO DAILY 05/30/23 [History] Liothyronine Sodium 2 tab PO DAILY 05/30/23 [History] Mv-Min/FA/Vit K/Lutein/Zeaxant [Preservision Areds 2 Plus Mv] 1 each PO BID 05/30/23 [History] Hx Tetanus, Diphtheria Vaccination/Date Given: Yes Hx Influenza Vaccination/Date Given: Yes Hx Pneumococcal Vaccination/Date Given: Yes Travel Risk - International Travel Have you traveled outside of the country in past 3 weeks: No - Emerging Infectious Disease Are you exhibiting symptoms associated with any current EIDs: No - Review of Systems Constitutional: No Symptoms Eyes: Vision Changes Ears, Nose, & Throat: No Symptoms Respiratory: No Symptoms Cardiac: No Symptoms Abdominal/Gastrointestinal: No Symptoms Genitourinary Symptoms: No Symptoms Musculoskeletal: No Symptoms Skin: No Symptoms Neurological: Other (Comments issues) Psychological: No Symptoms Endocrine: No Symptoms Hematologic/Lymphatic: No Symptoms Immunological/Allergic: No Symptoms All Other Systems: Reviewed and Negative - Past Medical History Pertinent Past Medical History: Yes Neurological History: Stroke, Other ENT History: Cataracts Cardiac History: Coronary Artery Disease, High Cholesterol, Hypertension Respiratory History: Sleep Apnea Endocrine Medical History: Hypothyroidism, Other Musculoskeletal History: Osteoarthritis, Degenerative Disk Disease GI Medical History: No Pertinent History History: Renal Disease, Other Psycho-Social History: Depression Female Reproductive Disorders: Breast Cancer Other Medical History: STAGE 3 CKD, CPAP FOR SLEEP APNEA, RIGHT TKR. Patient confirmed medical history pulled from previous ER record. She doesn't have anything to add at this time other than a concussion from 7 years ago. - Past Surgical History Past Surgical History: Yes Neuro Surgical History: No Pertinent History Cardiac: No Pertinent History Respiratory: No Pertinent History Gastrointestinal: No Pertinent History Genitourinary: No Pertinent History Musculoskeletal: Orthopedic Surgery Female Surgical History: Hysterectomy, Other Other Surgical History: cataract x2, right shoulder replacement and left index finger arthritis fusion. left steriotactic breast bx, carpal tunnel reyes , bladder tie up right knee replacement - Social History Smoking Status: Never smoker How long have you smoked: 2 Exposure to second hand smoke: No Drug Use: none Patient Lives Alone: Yes - Social Determinants of Health Will the patient participate in the screening: Yes Do you worry about a steady place to live?: No Do you have any problems with any of the following?: No known problems In the past 12 months,have you had to go without utilities?: No Transportation Issues: No Has anyone in your support network made you feel unsafe?: No Have you or anyone in your house had to go without enough: No - Nursing Vital Signs Nursing Vital Signs: Initial Vital Signs Temperature 97.4 F 12/08/23 10:40 Pulse Rate 60 12/08/23 10:40 Respiratory Rate 18 12/08/23 10:40 Blood Pressure 130/77 12/08/23 10:40 O2 Sat by Pulse Oximetry 99 12/08/23 10:40 Pain Scale Pain Intensity 0 - [place] Coma Scale Best Eye Response (Anita): (4) open spontaneously Best Verbal Response (Anita): (5) oriented Best Motor Response ([place]): (6) obeys commands [place] Total: 15 - Physical Exam General Appearance: no apparent distress, alert, anxiety Eye Exam: bilateral eye: normal inspection, PERRL, EOMI Ears, Nose, Throat Exam: normal ENT inspection, moist mucous membranes Neck Exam: normal inspection, non-tender, supple, full range of motion Respiratory: normal breath sounds, lungs clear, airway intact, No chest tenderness, No respiratory distress Cardiovascular: regular rate/rhythm, normal heart sounds, normal peripheral pulses Gastrointestinal: soft, normal bowel sounds, No tenderness Pelvic Exam: not done Rectal Exam: not done Back Exam: normal inspection, normal range of motion, No CVA tenderness, No vertebral tenderness Extremity Exam: normal inspection, normal range of motion, pelvis stable Mental Status: alert, oriented x 3, 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 Exam: normal hearing, normal speech, PERRL Coordination/Gait: normal gait, normal cerebellar function Motor/Sensory: no motor deficit, no sensory deficit Skin Exam: normal color, warm, dry SpO2 Interpretation: normal SpO2: 99 O2 Delivery: Room Air - Course Nursing assessment & vital signs reviewed: Yes Ordered Tests: Active Orders 24 hr Category Date Time Status Electrical Engineering Teacher STAT Care 12/08/23 10:57 Active EKG-ER Only STAT Care 12/08/23 10:55 Active IV Insertion STAT Care 12/08/23 10:55 Active NPO (ED) STAT Care 12/08/23 10:55 Active Pulse Oximetry (ED) STAT Care 12/08/23 10:55 Active HEAD WITHOUT CONTRAST [CT] Stat Exams 12/08/23 10:56 Completed MRI BRAIN W/O CONTRAST [MRI] Stat Exams 12/08/23 13:25 Completed CBC W DIFF Stat Lab 12/08/23 11:10 Completed CMP Stat Lab 12/08/23 11:10 Completed TSH, 3RD Generation Stat Lab 12/08/23 11:10 Completed UA W/RFX UR CULTURE Stat Lab 12/08/23 11:20 Completed Medication Summary Discontinued Medications Generic Name Dose Route Start Last Admin Trade Name Freq PRN Reason Stop Dose Admin Sodium Chloride 500 mls @ 500 mls/hr 12/08/23 10:57 12/08/23 12:24 Sodium Chloride 0.9% 500 Ml IV 12/08/23 11:56 Infused .Q1H ONE Infusion Sodium Chloride Confirm 12/08/23 11:22 Sodium Chloride 0.9% 500 Ml Administered 12/08/23 11:23 Dose 500 mls @ ud IV .STK-MED ONE Lab/Rad Data: Laboratory Result Diagrams 12/08/23 11:10 12/08/23 11:10 Laboratory Results 12/08/23 12/08/23 12/08/23 Range/Units 11:20 11:10 11:10 WBC (3.98-10.04) x10^3/uL RBC (3.93-5.22) x10^6/uL Hgb (11.2-15.7) g/dL Hct (34.1-44.9) % MCV (79.4-94.8) fL MCH (25.6-32.2) pg MCHC (32.2-35.5) g/dL RDW (11.7-14.4) % Plt Count (182-369) x10^3/uL MPV (9.4-12.3) fL Gran % (34.0-71.1) % Immature Gran % (Auto) (0.001-0.429) % Nucleat RBC Rel Count (0.00-0.2) % Eos # (Auto) (0.04-0.36) x10^3/uL Immature Gran # (Auto) (0.001-0.031) x10^3u/L Absolute Lymphs (auto) (1.18-3.74) x10^3/uL Absolute Monos (auto) (0.24-0.86) x10^3/uL Absolute Nucleated RBC (0.00-0.012) x10^3u/L Lymphocytes % (19.3-51.7) % Monocytes % (4.7-12.5) % Eosinophils % (0.7-5.8) % Basophils % (0.1-1.2) % Absolute Granulocytes (1.56-6.13) x10^3/uL Basophils # (0.01-0.08) x10^3/uL Sodium 142 (135-145) mmol/L Potassium 4.3 (3.5-5.1) mmol/L Chloride 109 H (98-107) mmol/L Carbon Dioxide 25 (22-30) mmol/L Anion Gap 11.2 (5-15) MEQ/L BUN 24 H (7-17) mg/dL Creatinine 1.11 H (0.52-1.04) mg/dL Estimated GFR 51.2 ML/MIN Glucose 99 (74-106) mg/dL Calcium 9.5 (8.4-10.2) mg/dL Total Bilirubin 0.60 (0.2-1.3) mg/dL AST 52 H (14-36) U/L ALT 39 H (0-35) U/L Alkaline Phosphatase 124 (38-126) U/L Serum Total Protein 6.7 (6.3-8.2) g/dL Albumin 4.0 (3.5-5.0) g/dL Free T4 0.84 (0.78-2.19) ng/dL TSH 3rd Generation 4.100 (0.470-4.680) mIU/L Urine Color Yellow (Yellow) Urine Appearance Clear (Clear) Urine pH 7.0 (4.6-8.0) Ur Specific Pierce <=1.005 (1.005-1.030) Urine Protein Negative (Negative) Urine Glucose (UA) Negative (Negative) mg/dL Urine Ketones Negative (Negative) Urine Blood Negative (Negative) Urine Nitrite Negative (Negative) Urine Bilirubin Negative (Negative) Urine Urobilinogen 0.2 (0.2) mg/dL Ur Leukocyte Esterase Negative (Negative) U Hyaline Cast (Auto) NONE SEEN (0-2) /LPF Urine Microscopic RBC 0-2 (0-5) /HPF Urine Microscopic WBC 0-2 (0-5) /HPF Ur Epithelial Cells None Seen (None Seen) /HPF Urine Bacteria None Seen (None Seen) /HPF Urine Culture Reflexed NO (NO) 12/08/23 Range/Units 11:10 WBC 7.6 (3.98-10.04) x10^3/uL RBC 4.46 (3.93-5.22) x10^6/uL Hgb 12.8 (11.2-15.7) g/dL Hct 39.6 (34.1-44.9) % MCV 88.8 (79.4-94.8) fL MCH 28.7 (25.6-32.2) pg MCHC 32.3 (32.2-35.5) g/dL RDW 13.7 (11.7-14.4) % Plt Count 208 (182-369) x10^3/uL MPV 9.9 (9.4-12.3) fL Gran % 68.0 (34.0-71.1) % Immature Gran % (Auto) 0.3 (0.001-0.429) % Nucleat RBC Rel Count 0.0 (0.00-0.2) % Eos # (Auto) 0.11 (0.04-0.36) x10^3/uL Immature Gran # (Auto) 0.02 (0.001-0.031) x10^3u/L Absolute Lymphs (auto) 1.80 (1.18-3.74) x10^3/uL Absolute Monos (auto) 0.47 (0.24-0.86) x10^3/uL Absolute Nucleated RBC 0.00 (0.00-0.012) x10^3u/L Lymphocytes % 23.7 (19.3-51.7) % Monocytes % 6.2 (4.7-12.5) % Eosinophils % 1.5 (0.7-5.8) % Basophils % 0.3 (0.1-1.2) % Absolute Granulocytes 5.16 (1.56-6.13) x10^3/uL Basophils # 0.02 (0.01-0.08) x10^3/uL Sodium (135-145) mmol/L Potassium (3.5-5.1) mmol/L Chloride (98-107) mmol/L Carbon Dioxide (22-30) mmol/L Anion Gap (5-15) MEQ/L BUN (7-17) mg/dL Creatinine (0.52-1.04) mg/dL Estimated GFR ML/MIN Glucose (74-106) mg/dL Calcium (8.4-10.2) mg/dL Total Bilirubin (0.2-1.3) mg/dL AST (14-36) U/L ALT (0-35) U/L Alkaline Phosphatase (38-126) U/L Serum Total Protein (6.3-8.2) g/dL Albumin (3.5-5.0) g/dL Free T4 (0.78-2.19) ng/dL TSH 3rd Generation (0.470-4.680) mIU/L Urine Color (Yellow) Urine Appearance (Clear) Urine pH (4.6-8.0) Ur Specific Pierce (1.005-1.030) Urine Protein (Negative) Urine Glucose (UA) (Negative) mg/dL Urine Ketones (Negative) Urine Blood (Negative) Urine Nitrite (Negative) Urine Bilirubin (Negative) Urine Urobilinogen (0.2) mg/dL Ur Leukocyte Esterase (Negative) U Hyaline Cast (Auto) (0-2) /LPF Urine Microscopic RBC (0-5) /HPF Urine Microscopic WBC (0-5) /HPF Ur Epithelial Cells (None Seen) /HPF Urine Bacteria (None Seen) /HPF Urine Culture Reflexed (NO) - Progress Progress: re-examined Progress Note: 12/08/23 11:14 My medical decision making and the assignment of moderate complexity to this patient's medical issue today is based on review of the patient's past medical history, review of the patient's medication list, reviewed patient drug allergy list, history present illness and physical findings on examination. The workup in this patient includes placement of intravenous line, infusion of normal saline solution, CBC, CMP, urinalysis, free T4, TSH, CT scan of the head without contrast. We will likely obtain a teleneurology consultation. We might be ordering a CT a of the brain and CT angiography of the neck. Differential diagnosis includes but is not limited to urinary tract infection, dehydration, acute intracranial abnormality, electrolyte abnormalities, thyroid function test abnormalities 12/08/23 12:41 I interpreted the patient's laboratory data results. Based on the laboratory data results, there are no acute, emergent medical issues. CT scan of the head without contrast was interpreted by the radiologist and I reviewed the impression. The impression states normal senile brain. Prior to final disposition, we will obtain a teleneurology consultation. 12/08/23 13:31 After the teleneurologist, Parminder Ann, evaluated this patient, his recommendation before the patient goes home today, is to order an MRI of the brain in this patient. If this study is negative for any acute infarction, the patient can be discharged to home. The second recommendation is for the patient to follow-up with the patient's primary care provider or neurologist to obtain an outpatient/ambulatory EEG 12/08/23 13:37 12/08/23 15:04 The MRI of the brain without contrast was interpreted by the radiologist and I reviewed the impression. The impression states stable chronic findings of atrophy, degenerative micro ischemia and subcentimeter remote infarct of right aparicio radiata. No acute intracranial abnormalities or evidence for evolving large vessel territorial stroke. The patient was informed that the MRI was negative and we had discussed the need for her to call her primary care provider and/or her neurologist today, to make arrangement for outpatient evaluation and obtaining an outpatient/ambulatory EEG. Counseled pt/family regarding: lab results, diagnosis, rad results Medical Desision Making - Independent Historian Additional History obtained from: Relative/friend - Diagnostic Testing Diagnostic test were ordered, analyzed, and reviewed by me: Yes Radiological Interpretation: Reviewed by me, Teleradiologist Report - Risk of complications Low Risk: Low risk of morbidity from additional dx testing or treatment - Departure Departure Disposition: Home Clinical Impression: Confusion, Balance problem Condition: Stable Critical Care Time: No Referrals: SOTERO EPSTEIN DO [Primary Care Provider] - Follow up/PCP as directed Additional Instructions: Continue all your medications as prescribed. Call your neurologist and/or your primary care provider today, 12/08/2023, to make arrangements for a follow-up appointment to be seen in the next 3 days as well as obtaining an outpatient/ambulatory EEG
[2023-12-08] MEDS ORDERED: Sodium Chloride 0.9% 500 ML 500 ML IV ONE (11:22)
[2023-12-08] MEDS: Sodium Chloride 0.9% 500 ML 500 ML IV ONE (11:22)
[2023-12-08 11:32] LABS: Absolute Neutrophil Ct (ANC) 5.16 x10^3/uL (1.56-6.13); BASOPHIL % 0.3 % (0.1-1.2); Basophil (Absolute #) 0.02 x10^3/uL (0.01-0.08); Eosinophil % 1.5 % (0.7-5.8); Eosinophil (Absolute #) 0.11 x10^3/uL (0.04-0.36); Hematocrit 39.6 % (34.1-44.9); Hemoglobin 12.8 g/dL (11.2-15.7); IMMATURE GRAN # 0.02 x10^3u/L (0.001-0.031); IMMATURE GRAN % 0.3 % (0.001-0.429); Lymphocytes % 23.7 % (19.3-51.7); Mean Cell Volume 88.8 fL (79.4-94.8); Mean Corpuscular Hemoglobin 28.7 pg (25.6-32.2); Mean Corpuscular Hgb Concent. 32.3 g/dL (32.2-35.5); Mean Platelet Volume 9.9 fL (9.4-12.3); Monocyte (Absolute #) 0.47 x10^3/uL (0.24-0.86); Monocytes % 6.2 % (4.7-12.5); Platelet Count 208 x10^3/uL (182-369); Red Blood Count 4.46 x10^6/uL (3.93-5.22); Red Cell Distribution Width 13.7 % (11.7-14.4); White Blood Count 7.6 x10^3/uL (3.98-10.04)
[2023-12-08 11:54] LABS: Appearance Clear (Clear); Bacteria None Seen /HPF (None Seen); Bilirubin Negative (Negative); Blood Negative (Negative); Epithelial Cells None Seen /HPF (None Seen); Glucose, Urine Negative (Negative); Hyaline Casts NONE SEEN /LPF (0-2); Ketones Negative (Negative); Leukocyte Esterase Negative (Negative); Nitrite Negative (Negative); Protein,Urine Dip Negative (Negative); RBC 0-2 /HPF (0-5); Specific Gravity <=1.005 (1.005-1.030); Urobilinogen 0.2 mg/dL (0.2); WBC 0-2 /HPF (0-5)
--- NOTE | 2023-12-08 12:10 | XRAY ---
Indication: Confusion. Balance issue. Vision issues. Multiple contiguous images obtained through the head without contrast. Comparison: May 29, 2023 Again age-appropriate global atrophy and minimal periventricular degenerative micro-ischemia. No acute intracranial hemorrhage, abnormal extra-axial fluid collection, or mass effect. Fourth ventricle is midline without hydrocephalus. Christensen-white matter differentiation preserved. Bony calvarium intact.. Visualized paranasal sinuses and mastoid air cells are clear. Impression: Continued normal senile brain.
[2023-12-08 12:24] LABS: ANION GAP 11.2 MEQ/L (5-15); BILIRUBIN,TOTAL 0.6 mg/dL (0.2-1.3); Calcium 9.5 mg/dL (8.4-10.2); Creatinine 1 1.11 mg/dL (0.52-1.04); EST GLOMERULAR FILTRATION RATE 51.2 ML/MIN; Potassium 4.3 mmol/L (3.5-5.1); TSH, 3RD Generation 4.1 mIU/L (0.470-4.680); Total Protein 6.7 g/dL (6.3-8.2)
--- NOTE | 2023-12-08 13:05 | PCM.CONS ---
History of Present Illness - Neuro Consultation Date of Consultation Date: 12/08/23 ED Arrival Date & Time: 12/08/23 10:21 Requesting Provider: Dr. Moscoso Providers: Attending Provider: ED Provider: MASOOD MOSCOSO Consulting Provider: MARCELLUS CURRY MD cc:: The requesting physician will be sent a copy of the consult. - Chief Complaint Patient Subjective Stated Complaint: "I had one of my episodes" - History of Present Illness HPI: The patient is a 78F who presents with episodes of "off balance." Patient had a concussion back in Nov 24 2016. Since then she has had "episodes" of blurry vision and off balance. She would have problems with speaking. This would last for about 30-60 minutes. No diagnosis was given for these episodes. Today was the worst one she's had since. This happened around 9:30 AM. She said this was the most severe episode. This lasted for 3 hours. The last one was roug hly back iin June/May. No focal weakness/numbness. No headaches. No LOC. No tongue biting. No urinary incontinence. No known triggers. No warning with this event. Usually gets a sensation in the middle of her forehead right before the episode. She recently seen a psychologist a few months ago for these events and was told that these episodes are not due to her concussion. Review of Systems - Review of Systems Review of Systems (Narrative): Pertinent positive and negative findings as per HPI. All other systems negative. - Past Medical History Past Medical History: Yes Neurological History: Dementia, Stroke, Other ENT History: No Pertinent History Cardiac History: Coronary Artery Disease, High Cholesterol, Hypertension Respiratory History: No Pertinent History Endocrine Medical History: No Pertinent History Musculoskelatal History: No Pertinent History, Degenerative Disk Disease, Osteoarthritis GI Medical History: No Pertinent History Pyscho-Social History: Anxiety, Depression Reproductive Disorders: No Pertinent History Comment: STAGE 3 CKD, CPAP FOR SLEEP APNEA, RIGHT TKR. Patient confirmed medical history pulled from previous ER record. She doesn't have anything to add at this time other than a concussion from 7 years ago. - Past Surgical History Neuro Surgical History: No Pertinent History Cardiac History: No Pertinent History Respiratory Surgery: No Pertinent History GI Surgical History: No Pertinent History Genitourinary Surgical Hx: No Pertinent History Musculskeletal Surgical Hx: Orthopedic Surgery Female Surgical History: Hysterectomy, Other Other Surgical History: cataract x2, right shoulder replacement and left index finger arthritis fusion. left steriotactic breast bx, carpal tunnel reyes , bladder tie up right knee replacement Significant Family History: no pertinent family hx - Social History Smoking Status: Never smoker How long have you smoked: 2 Exposure to second hand smoke: No Drug Use: none - Social Determinants of Health Will the patient participate in the screening: Yes Do you worry about a steady place to live?: No Do you have any problems with any of the following?: No known problems In the past 12 months,have you had to go without utilities?: No Have you or anyone in your house had to go without enough: No Transportation Issues: No Has anyone in your support network made you feel unsafe?: No Does the patient want assistance with any of the above?: No Physical Exam - Vital Signs Vital Signs: Vital Signs - 24 hr 12/08/23 12/08/23 12/08/23 10:40 10:55 11:01 Temperature 97.4 F Pulse Rate 60 69 Respiratory 18 17 Rate Blood Pressure 124/52 Blood Pressure 130/77 [Left Arm] O2 Sat by Pulse 99 99 99 Oximetry 12/08/23 12/08/23 12/08/23 11:20 11:42 12:00 Temperature Pulse Rate 68 51 L Respiratory 18 20 Rate Blood Pressure 112/69 119/55 Blood Pressure [Left Arm] O2 Sat by Pulse 100 99 100 Oximetry 12/08/23 12:42 Temperature Pulse Rate Respiratory Rate Blood Pressure Blood Pressure [Left Arm] O2 Sat by Pulse 99 Oximetry - Physical Exam General: no acute distress Mental Status: awake and oriented Motor: antigravity in all 4 ext Sens:: intact to touch in all 4 Movement:: no tremors noted Gait: deferred - NIHSS Stroke Scale Date Completed: 12/08/23 Time Stroke Scale Completed: 12:00 Level of Consciousness: Alert Level of Questions: Answers both correctly LOC Commands: Obeys both correctly Best Gaze: Normal Visual: No visual loss Facial Palsy: Normal Motor Arm-Left: No Drift Motor Arm-Right: No Drift Motor Leg-Left: No Drift Motor Leg Right: No Drift Limb Ataxia: Absent Sensory: Normal Best Language: No apashia Dysarthria: Normal aticulation Extinction and Inattention: No Neglect Stroke Risk Level: 0 Results - Labs Lab/Micro Results: Lab Results-Last 24 Hours 12/08/23 12/08/23 12/08/23 Range/Units 11:10 11:10 11:10 WBC 7.6 (3.98-10.04) x10^3/uL RBC 4.46 (3.93-5.22) x10^6/uL Hgb 12.8 (11.2-15.7) g/dL Hct 39.6 (34.1-44.9) % MCV 88.8 (79.4-94.8) fL MCH 28.7 (25.6-32.2) pg MCHC 32.3 (32.2-35.5) g/dL RDW 13.7 (11.7-14.4) % Plt Count 208 (182-369) x10^3/uL MPV 9.9 (9.4-12.3) fL Gran % 68.0 (34.0-71.1) % Immature Gran % (Auto) 0.3 (0.001-0.429) % Nucleat RBC Rel Count 0.0 (0.00-0.2) % Eos # (Auto) 0.11 (0.04-0.36) x10^3/uL Immature Gran # (Auto) 0.02 (0.001-0.031) x10^3u/L Absolute Lymphs (auto) 1.80 (1.18-3.74) x10^3/uL Absolute Monos (auto) 0.47 (0.24-0.86) x10^3/uL Absolute Nucleated RBC 0.00 (0.00-0.012) x10^3u/L Lymphocytes % 23.7 (19.3-51.7) % Monocytes % 6.2 (4.7-12.5) % Eosinophils % 1.5 (0.7-5.8) % Basophils % 0.3 (0.1-1.2) % Absolute Granulocytes 5.16 (1.56-6.13) x10^3/uL Basophils # 0.02 (0.01-0.08) x10^3/uL Sodium 142 (135-145) mmol/L Potassium 4.3 (3.5-5.1) mmol/L Chloride 109 H (98-107) mmol/L Carbon Dioxide 25 (22-30) mmol/L Anion Gap 11.2 (5-15) MEQ/L BUN 24 H (7-17) mg/dL Creatinine 1.11 H (0.52-1.04) mg/dL Estimated GFR 51.2 ML/MIN Glucose 99 (74-106) mg/dL Calcium 9.5 (8.4-10.2) mg/dL Total Bilirubin 0.60 (0.2-1.3) mg/dL AST 52 H (14-36) U/L ALT 39 H (0-35) U/L Alkaline Phosphatase 124 (38-126) U/L Serum Total Protein 6.7 (6.3-8.2) g/dL Albumin 4.0 (3.5-5.0) g/dL Free T4 0.84 (0.78-2.19) ng/dL TSH 3rd Generation 4.100 (0.470-4.680) mIU/L Urine Color (Yellow) Urine Appearance (Clear) Urine pH (4.6-8.0) Ur Specific [place] (1.005-1.030) Urine Protein (Negative) Urine Glucose (UA) (Negative) mg/dL Urine Ketones (Negative) Urine Blood (Negative) Urine Nitrite (Negative) Urine Bilirubin (Negative) Urine Urobilinogen (0.2) mg/dL Ur Leukocyte Esterase (Negative) U Hyaline Cast (Auto) (0-2) /LPF Urine Microscopic RBC (0-5) /HPF Urine Microscopic WBC (0-5) /HPF Ur Epithelial Cells (None Seen) /HPF Urine Bacteria (None Seen) /HPF Urine Culture Reflexed (NO) 12/08/23 Range/Units 11:20 WBC (3.98-10.04) x10^3/uL RBC (3.93-5.22) x10^6/uL Hgb (11.2-15.7) g/dL Hct (34.1-44.9) % MCV (79.4-94.8) fL MCH (25.6-32.2) pg MCHC (32.2-35.5) g/dL RDW (11.7-14.4) % Plt Count (182-369) x10^3/uL MPV (9.4-12.3) fL Gran % (34.0-71.1) % Immature Gran % (Auto) (0.001-0.429) % Nucleat RBC Rel Count (0.00-0.2) % Eos # (Auto) (0.04-0.36) x10^3/uL Immature Gran # (Auto) (0.001-0.031) x10^3u/L Absolute Lymphs (auto) (1.18-3.74) x10^3/uL Absolute Monos (auto) (0.24-0.86) x10^3/uL Absolute Nucleated RBC (0.00-0.012) x10^3u/L Lymphocytes % (19.3-51.7) % Monocytes % (4.7-12.5) % Eosinophils % (0.7-5.8) % Basophils % (0.1-1.2) % Absolute Granulocytes (1.56-6.13) x10^3/uL Basophils # (0.01-0.08) x10^3/uL Sodium (135-145) mmol/L Potassium (3.5-5.1) mmol/L Chloride (98-107) mmol/L Carbon Dioxide (22-30) mmol/L Anion Gap (5-15) MEQ/L BUN (7-17) mg/dL Creatinine (0.52-1.04) mg/dL Estimated GFR ML/MIN Glucose (74-106) mg/dL Calcium (8.4-10.2) mg/dL Total Bilirubin (0.2-1.3) mg/dL AST (14-36) U/L ALT (0-35) U/L Alkaline Phosphatase (38-126) U/L Serum Total Protein (6.3-8.2) g/dL Albumin (3.5-5.0) g/dL Free T4 (0.78-2.19) ng/dL TSH 3rd Generation (0.470-4.680) mIU/L Urine Color Yellow (Yellow) Urine Appearance Clear (Clear) Urine pH 7.0 (4.6-8.0) Ur Specific [place] <=1.005 (1.005-1.030) Urine Protein Negative (Negative) Urine Glucose (UA) Negative (Negative) mg/dL Urine Ketones Negative (Negative) Urine Blood Negative (Negative) Urine Nitrite Negative (Negative) Urine Bilirubin Negative (Negative) Urine Urobilinogen 0.2 (0.2) mg/dL Ur Leukocyte Esterase Negative (Negative) U Hyaline Cast (Auto) NONE SEEN (0-2) /LPF Urine Microscopic RBC 0-2 (0-5) /HPF Urine Microscopic WBC 0-2 (0-5) /HPF Ur Epithelial Cells None Seen (None Seen) /HPF Urine Bacteria None Seen (None Seen) /HPF Urine Culture Reflexed NO (NO) - Radiology Orders Radiology Orders: Radiology Procedures Category Date Time Status HEAD WITHOUT CONTRAST [CT] Stat Exams 12/08/23 10:56 Completed - CT Impressions CT Head w/wo contrast Status: report reviewed by me (no acute findings) Impressions & Recommendations - Impression Acute Ischemic Stroke: stroke-like symptoms - ED Arrival Time ED Arrival Date & Time: ED Arrival Date and Time 12/08/23 10:21 Last known well time: - NIHSS NIHSS: 0 Candidate (No): Reason: Patient is not a candidat (symptoms are not consistent with a stroke) - Recommendations Recommendations: -Recommend MRI Brain wo to r/o an acute infarct - If MRI shows no acute infarct, have patient follow up with outpatient n eurology for ambulatory EEG Impression and recommendation were discussed with Dr. MASOOD MOSCOSO Thank you for allowing us to participate in this patient's care. Please call [facility] with questions, concerns, or change in patient's neurological status. This consult was performed via secure telemedicine audio/visual platform with [ ] RN assisting at bedside. Patient identity verified and consent obtained. TIQ recieved at [ ] Neuro Cart Time: 12/08/2023 12:56 Delays in Patient Encounter: none Assessment & Plan (1) Confusion Current Visit: No Status: Acute Code(s): R41.0 - DISORIENTATION, UNSPECIFIED - Encounter Encounter: "The entirety of this encounter was performed via Telemedicine using audio and visual "
--- NOTE | 2023-12-08 14:58 | XRAY ---
Indication: Confusion. "Off balance." Negative CT head. Sagittal, coronal, and axial MRI brain performed without contrast using T1, T2, FLAIR, diffusion, and ADC sequences. Comparison: July 01, 2022 and May 30, 2023 Again age-appropriate global atrophy, mild periventricular degenerative micro-ischemia signal bilaterally, and subcentimeter focus old infarct right mid aparicio radiata. No acute intracranial hemorrhage, abnormal extra-axial fluid collection, or mass effect. Diffusion images again negative for restricted signal. Fourth ventricle is midline without hydrocephalus. 7/8 cranial nerve complex bilaterally symmetric. Normal flow-void signal within the major intracerebral circulation. Normal appearing craniocervical junction. Paranasal sinuses are clear. Impression: 1. Stable chronic findings include atrophy, degenerative micro-ischemia, and subcentimeter remote infarct right aparicio radiata. 2. Again no acute intracranial abnormalities or evidence for evolving large vessel territorial stroke.
[2023-12-08 15:07] VITALS: O2SAT 99
[2023-12-08 15:21] VITALS: BP 130/70; PULSE 60; RESP 16
== END 2023-12-08 15:21 | disposition home or self-care (01) ==
LOC: ED 10:21
DX: R41.0 Disorientation, unspecified (principal); R26.89 Other abnormalities of gait and mobility; H53.9 Unspecified visual disturbance; E78.5 Hyperlipidemia, unspecified; I12.9 Hypertensive chronic kidney disease with stage 1 through stage 4 chronic kidney disease, or unspecified chronic kidney disease; N18.30 Chronic kidney disease, stage 3 unspecified; Z79.899 Other long term (current) drug therapy
CPT/HCPCS: 36000; 36415; 70450; 70551; 80053; 81001; 84439; 84443; 85025; 93005; 93041; 94760; 96360; 99284; Q3014

== ENCOUNTER 2024-05-17 11:38 | Emergency (ER) | payer MEDICARE, OTHER ==
--- NOTE | 2024-05-17 11:44 | ERPHSYRPT ---
- History of Present Illness Time Seen by Provider: 05/17/24 11:44 Source: patient, family Exam Limitations: clinical condition Physician History: This is a 79-year-old white female patient who drove herself to [facility] this morning to be seen because of her experiencing some memory loss and some blurred vision. She did not want to come to the emergency department. She did not want an expensive bill. The last time she had this type of symptoms she had a urinary tract infection. [employer] [facility] sent her to the emergency department for evaluation and management. Patient denies headache. Patient denies head injury. Patient denies chest pain. Patient denies shortness of breath. She is wearing a Holter monitor her chart writer ordered. She had been having some intermittent chest pains. Patient is extremely talkative, has a nonfocal neurologic exam, she is moving all her extremities. Her NIH score is 0. She has had several MRIs and CT scans of the brain over the last year and a half. Nothing has ever shown to be acute. Most recently, 12/08/2023 and MRI of the brain was performed and shows no acute intracranial abnormalities or evidence of evolving large vessel territorial stroke. There are stable chronic findings of atrophy and degenerative micro ischemia. 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 Patient had complaints about us obtaining a teleneurology consultation. She wants to avoid this if possible. It was too expensive. Her insurance company did not cover that. Patient has a history of hypertension, hyperlipidemia, gout, dementia, hypothyroidism, coronary artery disease, chronic renal disease, degenerative disc disease. Timing/Duration: today Severity: mild Character of Deficits: vision problems (Blurred vision earlier but none now) Deficits: no difficulties Baseline/Normal Cognition: alert oriented x 3 Current Cognition: alert oriented x 3 Baseline Gait: walks w/o assistance Associated Symptoms: vision changes, other ([place] she had some memory loss this morning at 930), No confusion, No fatigue, No fever, No weakness, No insomnia, No chest pain Allergies/Adverse Reactions: Iqztnqo-BSP-HvK Reductase Inhibitor [Fdiylat-Pvx-Cux Reductase Inhibitor] Allergy (Intermediate, Verified 05/17/24 12:03) hip and leg pain "couldn't move or do anything" cephalexin Adverse Reaction (Mild, Verified 05/17/24 12:03) Nausea oxybutynin Adverse Reaction (Mild, Verified 05/17/24 12:03) urinary retention tamsulosin Adverse Reaction (Mild, Verified 05/17/24 12:03) urinary retention Home Medications: Aspirin 81 mg PO DAILY 09/20/17 [History] Multivitamin W-Minerals/Lutein [Centrum Silver Tablet] 1 each PO DAILY 09/20/17 [History] Amlodipine Besylate 5 mg PO DAILY 10/04/19 [History] Ezetimibe 10 mg PO HS 10/04/19 [History] Isosorbide Mononitrate 30 mg [Imdur 30 MG] 30 mg PO DAILY 10/04/19 [History] Rosuvastatin Calcium 20 mg PO HS 10/04/19 [History] Nitroglycerin 0.4 mg Tablet [Nitrostat 0.4 MG Tablet] 0.4 mg SL UD 06/11/20 [History] Acetaminophen 500 mg [Tylenol Extra Strength 500 mg] 500 mg PO DAILY PRN PRN 07/14/21 [History] Allopurinol 100 mg [Zyloprim 100 mg] 100 mg PO BID 07/14/21 [History] Docusate Sodium [Stool Softener] 100 mg PO HS 07/14/21 [History] Cranberry Fruit Extract/Vit C [Azo Cranberry Softgel] 2 each PO DAILY 05/30/23 [History] Donepezil HCl 10 mg PO DAILY 05/30/23 [History] Gluc/Chnd/Om3/Dha/Epa/Fish/Str [Glucosamine-Chondr Plus Sftgel] 2 each PO DAILY 05/30/23 [History] Liothyronine Sodium 2 tab PO DAILY 05/30/23 [History] Mv-Min/FA/Vit K/Lutein/Zeaxant [Preservision Areds 2 Plus Mv] 1 each PO BID 05/30/23 [History] Hx Tetanus, Diphtheria Vaccination/Date Given: Yes Hx Influenza Vaccination/Date Given: Yes Hx Pneumococcal Vaccination/Date Given: Yes Travel Risk - International Travel Have you traveled outside of the country in past 3 weeks: No - Emerging Infectious Disease Are you exhibiting symptoms associated with any current EIDs: No - Review of Systems Constitutional: No Symptoms Eyes: No Symptoms Ears, Nose, & Throat: No Symptoms Respiratory: No Symptoms Cardiac: No Symptoms Abdominal/Gastrointestinal: No Symptoms Genitourinary Symptoms: No Symptoms Musculoskeletal: No Symptoms Skin: No Symptoms Psychological: No Symptoms Endocrine: No Symptoms Hematologic/Lymphatic: No Symptoms Immunological/Allergic: No Symptoms All Other Systems: Reviewed and Negative - Past Medical History Pertinent Past Medical History: Yes Neurological History: Stroke, Other ENT History: Cataracts Cardiac History: Coronary Artery Disease, High Cholesterol, Hypertension Respiratory History: Sleep Apnea Endocrine Medical History: Hypothyroidism, Other Musculoskeletal History: Osteoarthritis, Degenerative Disk Disease GI Medical History: No Pertinent History History: Renal Disease, Other Psycho-Social History: Depression Female Reproductive Disorders: Breast Cancer Other Medical History: STAGE 3 CKD, CPAP FOR SLEEP APNEA, RIGHT TKR. Patient confirmed medical history pulled from previous ER record. She doesn't have anything to add at this time other than a concussion from 7 years ago. - Past Surgical History Past Surgical History: Yes Neuro Surgical History: No Pertinent History Cardiac: No Pertinent History Respiratory: No Pertinent History Gastrointestinal: No Pertinent History Genitourinary: No Pertinent History Musculoskeletal: Orthopedic Surgery Female Surgical History: Hysterectomy, Other Other Surgical History: cataract x2, right shoulder replacement and left index finger arthritis fusion. left steriotactic breast bx, carpal tunnel reyes , bladder tie up right knee replacement Significant Family History: no pertinent family hx - Social History Smoking Status: Never smoker How long have you smoked: 2 Exposure to second hand smoke: No Drug Use: none Patient Lives Alone: Yes - Social Determinants of Health Will the patient participate in the screening: Yes Do you worry about a steady place to live?: No In the past 12 months,have you had to go without utilities?: No Transportation Issues: No Has anyone in your support network made you feel unsafe?: No Have you or anyone in your house had to go w/o enough food: No - Nursing Vital Signs Nursing Vital Signs: Initial Vital Signs Temperature 97.3 F 05/17/24 11:43 Pulse Rate 58 L 05/17/24 11:43 Respiratory Rate 16 05/17/24 11:43 Blood Pressure 140/56 05/17/24 11:43 O2 Sat by Pulse Oximetry 99 05/17/24 11:43 Pain Scale Pain Intensity 0 - [place] Coma Scale Best Eye Response ([place]): (4) open spontaneously Best Verbal Response (Anita): (5) oriented Best Motor Response ([place]): (6) obeys commands [place] Total: 15 - Physical Exam General Appearance: no apparent distress, alert, anxiety Eye Exam: bilateral eye: normal inspection, PERRL, EOMI Ears, Nose, Throat Exam: normal ENT inspection, moist mucous membranes Neck Exam: normal inspection, non-tender, supple, full range of motion Respiratory: normal breath sounds, lungs clear, airway intact, No chest tenderness, No respiratory distress Cardiovascular: regular rate/rhythm, normal heart sounds, normal peripheral pulses Gastrointestinal: soft, normal bowel sounds, No tenderness Pelvic Exam: not done Rectal Exam: not done Back Exam: normal inspection, normal range of motion, No CVA tenderness, No vert ebral tenderness Extremity Exam: normal inspection, normal range of motion, pelvis stable Mental Status: alert, oriented x 3, cooperative rigger Exam: normal hearing, normal speech, PERRL Coordination/Gait: normal finger to nose, normal gait, normal cerebellar function Motor/Sensory: no motor deficit, no sensory deficit, no pronator drift Skin Exam: normal color, warm, dry SpO2 Interpretation: normal O2 Delivery: Room Air - Course Nursing assessment & vital signs reviewed: Yes EKG Interpreted by Me: RATE (55), Sinus Rhythm, NORMAL AXIS, NORMAL INTERVALS, NORMAL QRS, Other (No acute ischemia. QTc 390) Ordered Tests: Active Orders 24 hr Category Date Time Status EKG-ER Only STAT Care 05/17/24 12:00 Active NPO (ED) STAT Care 05/17/24 11:51 Active HEAD WITHOUT CONTRAST [CT] Stat Exams 05/17/24 11:52 Completed CBC W DIFF Stat Lab 05/17/24 Completed CMP Stat Lab 05/17/24 11:51 Completed TROPONIN Q4H Lab 05/17/24 12:15 Completed TROPONIN Q4H Lab 05/17/24 16:15 Ordered TROPONIN Q4H Lab 05/17/24 20:15 Ordered UA W/RFX UR CULTURE Stat Lab 05/17/24 11:51 Completed Lab/Rad Data: Laboratory Result Diagrams 05/17/24 Unknown 05/17/24 11:51 Laboratory Results 05/17/24 05/17/24 05/17/24 Range/Units Unknown 12:15 11:51 WBC 6.7 (3.98-10.04) x10^3/uL RBC 4.38 (3.93-5.22) x10^6/uL Hgb 12.4 (11.2-15.7) g/dL Hct 37.9 (34.1-44.9) % MCV 86.5 (79.4-94.8) fL MCH 28.3 (25.6-32.2) pg MCHC 32.7 (32.2-35.5) g/dL RDW 13.2 (11.7-14.4) % Plt Count 204 (182-369) x10^3/uL MPV 9.4 (9.4-12.3) fL Gran % 77.5 H (34.0-71.1) % Immature Gran % (Auto) 0.3 (0.001-0.429) % Nucleat RBC Rel Count 0.0 (0.00-0.2) % Eos # (Auto) 0.08 (0.04-0.36) x10^3/uL Immature Gran # (Auto) 0.02 (0.001-0.031) x10^3u/L Absolute Lymphs (auto) 0.92 L (1.18-3.74) x10^3/uL Absolute Monos (auto) 0.47 (0.24-0.86) x10^3/uL Absolute Nucleated RBC 0.00 (0.00-0.012) x10^3u/L Lymphocytes % 13.7 L (19.3-51.7) % Monocytes % 7.0 (4.7-12.5) % Eosinophils % 1.2 (0.7-5.8) % Basophils % 0.3 (0.1-1.2) % Absolute Granulocytes 5.20 (1.56-6.13) x10^3/uL Basophils # 0.02 (0.01-0.08) x10^3/uL Sodium 142 (135-145) mmol/L Potassium 4.4 (3.5-5.1) mmol/L Chloride 108 H (98-107) mmol/L Carbon Dioxide 23 (22-30) mmol/L Anion Gap 15.5 H (5-15) MEQ/L BUN 33 H (7-17) mg/dL Creatinine 0.94 (0.52-1.04) mg/dL Estimated GFR 62.1 ML/MIN Glucose 191 H (74-106) mg/dL Calcium 9.5 (8.4-10.2) mg/dL Total Bilirubin 0.50 (0.2-1.3) mg/dL AST 60 H (14-36) U/L ALT 64 H (0-35) U/L Alkaline Phosphatase 102 (38-126) U/L Troponin I < 0.012 (0.000-0.033) ng/mL Serum Total Protein 6.9 (6.3-8.2) g/dL Albumin 4.2 (3.5-5.0) g/dL Urine Color (Yellow) Urine Appearance (Clear) Urine pH (4.6-8.0) Ur Specific [place] (1.005-1.030) Urine Protein (Negative) Urine Glucose (UA) (Negative) mg/dL Urine Ketones (Negative) Urine Blood (Negative) Urine Nitrite (Negative) Urine Bilirubin (Negative) Urine Urobilinogen (0.2) mg/dL Ur Leukocyte Esterase (Negative) U Hyaline Cast (Auto) (0-2) /LPF Urine Microscopic RBC (0-5) /HPF Urine Microscopic WBC (0-5) /HPF Ur Epithelial Cells (None Seen) /HPF Urine Bacteria (None Seen) /HPF Urine Culture Reflexed (NO) 05/17/24 Range/Units 11:51 WBC (3.98-10.04) x10^3/uL RBC (3.93-5.22) x10^6/uL Hgb (11.2-15.7) g/dL Hct (34.1-44.9) % MCV (79.4-94.8) fL MCH (25.6-32.2) pg MCHC (32.2-35.5) g/dL RDW (11.7-14.4) % Plt Count (182-369) x10^3/uL MPV (9.4-12.3) fL Gran % (34.0-71.1) % Immature Gran % (Auto) (0.001-0.429) % Nucleat RBC Rel Count (0.00-0.2) % Eos # (Auto) (0.04-0.36) x10^3/uL Immature Gran # (Auto) (0.001-0.031) x10^3u/L Absolute Lymphs (auto) (1.18-3.74) x10^3/uL Absolute Monos (auto) (0.24-0.86) x10^3/uL Absolute Nucleated RBC (0.00-0.012) x10^3u/L Lymphocytes % (19.3-51.7) % Monocytes % (4.7-12.5) % Eosinophils % (0.7-5.8) % Basophils % (0.1-1.2) % Absolute Granulocytes (1.56-6.13) x10^3/uL Basophils # (0.01-0.08) x10^3/uL Sodium (135-145) mmol/L Potassium (3.5-5.1) mmol/L Chloride (98-107) mmol/L Carbon Dioxide (22-30) mmol/L Anion Gap (5-15) MEQ/L BUN (7-17) mg/dL Creatinine (0.52-1.04) mg/dL Estimated GFR ML/MIN Glucose (74-106) mg/dL Calcium (8.4-10.2) mg/dL Total Bilirubin (0.2-1.3) mg/dL AST (14-36) U/L ALT (0-35) U/L Alkaline Phosphatase (38-126) U/L Troponin I (0.000-0.033) ng/mL Serum Total Protein (6.3-8.2) g/dL Albumin (3.5-5.0) g/dL Urine Color Yellow (Yellow) Urine Appearance Clear (Clear) Urine pH 5.5 (4.6-8.0) Ur Specific [place] <=1.005 (1.005-1.030) Urine Protein Negative (Negative) Urine Glucose (UA) Negative (Negative) mg/dL Urine Ketones Negative (Negative) Urine Blood Negative (Negative) Urine Nitrite Negative (Negative) Urine Bilirubin Negative (Negative) Urine Urobilinogen 0.2 (0.2) mg/dL Ur Leukocyte Esterase Negative (Negative) U Hyaline Cast (Auto) NONE SEEN (0-2) /LPF Urine Microscopic RBC 0-2 (0-5) /HPF Urine Microscopic WBC 0-2 (0-5) /HPF Ur Epithelial Cells None Seen (None Seen) /HPF Urine Bacteria None Seen (None Seen) /HPF Urine Culture Reflexed NO (NO) - Progress Progress: improved, re-examined Progress Note: 05/17/24 12:10 My medical decision making and the assignment of moderate complexity of this patient's medical issue today is based on review of the patient's past medical history, review the patient's medication list, reviewed patient drug allergy list, history present illness and physical findings on examination. The workup in this patient includes intravenous line placement, twelve-lead EKG, troponin level, urinalysis, CBC, CMP, CT scan of the head without contrast. Differential diagnosis includes but is not limited to anxiety about health, urinary tract infection, acute intracranial abnormality, electrolyte abnorm alities, myocardial infarction, arrhythmias, dehydration 05/17/24 12:[address] scan of the head without contrast was interpreted by the radiologist and I reviewed the impression. The impression states stable, nonacute senile brain 05/17/24 13:03 I interpreted the patient's laboratory data results. Based on the laboratory data results, there are no acute, emergent medical issues. This patient has had several workups in the past 2 years for the complaint of chronic intermittent visual changes and chronic intermittent confusion/memory loss. They have all been negative. Today, her NIH score is 0 and she is completely alert and oriented. She has no pain. She has no history of trauma. The workup today is negative. Her vital signs are stable. I do not think she is in need of an MRI of her brain, at least not through the emergency department. Counseled pt/family regarding: lab results, diagnosis, need for follow-up, rad results Medical Desision Making - Diagnostic Testing Diagnostic test were ordered, analyzed, and reviewed by me: Yes Radiological Interpretation: Reviewed by me, Teleradiologist Report - Risk of complications Low Risk: Low risk of morbidity from additional dx testing or treatment - Departure Departure Disposition: Home Clinical Impression: Memory loss, Visual changes Condition: Stable Critical Care Time: No Referrals: SOTERO EPSTEIN, [Primary Care Provider] - Follow up/PCP as directed Additional Instructions: Drink plenty of fluids. Take your medications as prescribed. Call your neurologist and primary care provider today, 05/17/2024, and make arrangements for follow-up appointment to be seen in the next 3 to 5 days.
[2024-05-17 11:52] VITALS: TEMP 97.3
[2024-05-17 12:08] LABS: BASOPHIL % 0.3 % (0.1-1.2); Basophil (Absolute #) 0.02 x10^3/uL (0.01-0.08); Eosinophil % 1.2 % (0.7-5.8); Eosinophil (Absolute #) 0.08 x10^3/uL (0.04-0.36); Hematocrit 37.9 % (34.1-44.9); Hemoglobin 12.4 g/dL (11.2-15.7); IMMATURE GRAN # 0.02 x10^3u/L (0.001-0.031); IMMATURE GRAN % 0.3 % (0.001-0.429); Lymphocyte (Absolute #) 0.92 x10^3/uL (1.18-3.74); Lymphocytes % 13.7 % (19.3-51.7); Mean Cell Volume 86.5 fL (79.4-94.8); Mean Corpuscular Hemoglobin 28.3 pg (25.6-32.2); Mean Corpuscular Hgb Concent. 32.7 g/dL (32.2-35.5); Mean Platelet Volume 9.4 fL (9.4-12.3); Monocyte (Absolute #) 0.47 x10^3/uL (0.24-0.86); Neutrophil % 77.5 % (34.0-71.1); Platelet Count 204 x10^3/uL (182-369); Red Blood Count 4.38 x10^6/uL (3.93-5.22); Red Cell Distribution Width 13.2 % (11.7-14.4); White Blood Count 6.7 x10^3/uL (3.98-10.04)
[2024-05-17 12:21] LABS: ALBUMIN 4.2 g/dL (3.5-5.0); ANION GAP 15.5 MEQ/L (5-15); BILIRUBIN,TOTAL 0.5 mg/dL (0.2-1.3); Calcium 9.5 mg/dL (8.4-10.2); Creatinine 1 0.94 mg/dL (0.52-1.04); EST GLOMERULAR FILTRATION RATE 62.1 ML/MIN; Potassium 4.4 mmol/L (3.5-5.1); Total Protein 6.9 g/dL (6.3-8.2)
[2024-05-17 12:33] LABS: Appearance Clear (Clear); Bacteria None Seen /HPF (None Seen); Bilirubin Negative (Negative); Blood Negative (Negative); Epithelial Cells None Seen /HPF (None Seen); Glucose, Urine Negative (Negative); Hyaline Casts NONE SEEN /LPF (0-2); Ketones Negative (Negative); Leukocyte Esterase Negative (Negative); Nitrite Negative (Negative); Ph 5.5 (4.6-8.0); Protein,Urine Dip Negative (Negative); RBC 0-2 /HPF (0-5); Specific Gravity <=1.005 (1.005-1.030); Urobilinogen 0.2 mg/dL (0.2); WBC 0-2 /HPF (0-5)
--- NOTE | 2024-05-17 12:35 | XRAY ---
Indication: Memory loss. Visual changes. Multiple contiguous axial images obtained through the head without contrast. Comparison: December 08, 2023 Again age-appropriate global atrophy and minimal periventricular degenerative micro-ischemia bilaterally. No acute intracranial hemorrhage, abnormal extra-axial fluid collection, or mass effect. Fourth ventricle is midline without hydrocephalus. Christensen-white matter differentiation preserved. Bony calvarium intact. Visualized paranasal sinuses and mastoid air cells are clear. Impression: Stable nonacute senile brain.
[2024-05-17 13:01] VITALS: BP 104/57; PULSE 59; RESP 20; O2SAT 92
== END 2024-05-17 13:14 | disposition home or self-care (01) ==
LOC: ED 11:38
DX: H53.8 Other visual disturbances (principal); R41.3 Other amnesia; E78.5 Hyperlipidemia, unspecified; I12.9 Hypertensive chronic kidney disease with stage 1 through stage 4 chronic kidney disease, or unspecified chronic kidney disease; N18.30 Chronic kidney disease, stage 3 unspecified; Z79.899 Other long term (current) drug therapy
CPT/HCPCS: 36415; 70450; 80053; 81001; 84484; 85025; 93005; 93041; 99284; 99285